=== PATIENT | male | born 1945 | race Caucasian/White ===

== ENCOUNTER 2016-09-20 17:00 | Inpatient (IN) | payer MEDICARE ==
[~2016-09-20] VITALS: Ht 185.4 cm; Wt 59.9 kg
--- NOTE | ~2016-09-20 | PN ---
Unit #: [id number] #: [id number] Patient: TOMMY JEONG [id number] [facility] [address] [place] [address] [id number] MR#: [id number] NAME: TOMMY JEONG ROOM: P211 Age: 71 Sex: M Admission Date: 09/21/2016 : 1945 Attending Physician: Vasquez Briggs M.D. Admitting Physician: Vasquez Briggs M.D. Primary Care Physician: Rita Morales PROGRESS NOTES DATE OF SERVICE: 09/25/2016 DISCUSSION Tommy Jeogn is a 71-year-old male, seen on 09/25/2016. The patient interviewed, chart reviewed, and obtained information from nursing staff. The patient was able to answer question in monotone voice, withdrawn, isolative, flat affect, sad and dysphoric mood. The patient was staying in bed. Hygiene and grooming, poor. The patient needing prompts to take care of his ADL as well as to eat. The patient ate 50% of the breakfast and had Ensure. The patient's CMP yesterday showed sodium 146, glucose 190, BUN 37, creatinine 1.8, calcium 10.4. Complete review of systems unremarkable. MENTAL STATUS EXAMINATION General appearance, the patient dressed casually in hospital attire. Attention span and concentration, poor. Orientation in self and place. Mood and affect, sad, depressed, flat. Speech, monotone. Thought process, concrete. The patient denied any thoughts of harming self or others. Recent and remote memory, poor. Insight and judgment, poor. DIAGNOSES Bipolar mood disorder, recurrent, depressed, F31.9. ASSESSMENT AND PLAN Advised to continue to monitor the patient's intake and output. Follow up with medical doctor, daily weight gain, encouraged the patient to eat, CMP. Dictated by... Jonathan Potter/enrike TD: 09/27/2016 22:42 JOB #: [id number] Unit #: [id number] #: [id number] Patient: TOMMY JEONG PROGRESS NOTES Page 1 of 1 X Vasquez Briggs MD PROGRESS NOTE
--- NOTE | ~2016-09-20 | PA ---
Unit #: [id number] #: [id number] Patient: OVIDIO HANSEN [id number] [facility] [address] [place] [address] [id number] I MR#: [id number] NAME: OVIDIO HASNEN ROOM: P211 Age: 71 Sex: M Admission Date: 09/21/2016 : 1945 Date of Assessment: Attending Physician: Vasquez Briggs M.D. Admitting Physician: Vasquez Briggs M.D. Primary Care Physician: Sharonda Cuevas PSYCHIATRIC ASSESSMENT INFORMANTS Patient's reliability, fair; chart reliability, good. CHIEF COMPLAINT Depression. HISTORY OF PRESENT ILLNESS Mr. Sanders is a 71-year-old male presented with the above-mentioned complaint. The patient is well known to us from his previous admission in 03/2016, carries a diagnosis of bipolar mood disorder. The patient was brought to [facility] by sister due to increase in depression, inability to attend ADL, recently discharged from [facility] for depression with suicidal ideation, disorientation. The patient was catatonic upon admission to the emergency room. Currently flat affect, low energy. Stated that he is feeling very down, sad and depressed. The patient reported he had decreased energy, decrease in desire to take care of himself, reported feeling very lethargic, having trouble sleeping, lost 40 pounds since March. The patient has not been eating in the last 4 days. He lives alone. The patient has support from his sister. Sleeping 2 hours. Poor appetite. Needing inpatient admission at this time for psychiatric stabilization. PAST PSYCHIATRIC HISTORY Remarkable for [facility] Previous treatment in [place], [place] for depression. For the last several years for bipolar disorder, history of outpatient treatment through [facility]. FAMILY HISTORY AND SOCIAL HISTORY The patient lives alone, has a good support system from his sister. No history of any psychiatric illness in the family. MEDICAL HISTORY Remarkable for history of hypertension and kidney problems. Musculoskeletal; muscle strength and tone; no atrophy or abnormal movement. Gait normal. MEDICATION HISTORY The patient is on Lamictal 50 mg at bedtime, bupropion 150 mg daily, Remeron 45 mg at bedtime, Saphris 10 mg b.i.d., sublingual Norvasc 10 mg daily. The patient was also on chlorthalidone, which was discontinued. ALLERGIES Unit #: [id number] #: [id number] Patient: OVIDIO HANSEN No known drug allergies. SUBSTANCE ABUSE HISTORY None. REVIEW OF SYSTEMS HEENT: Eyes, clear. Ears, nose, mouth, and throat; clear. CARDIOVASCULAR: Unremarkable. RESPIRATORY: Unremarkable. GI: Unremarkable. : Unremarkable. SKIN: Unremarkable. LYMPH NODE: Unremarkable. NEUROLOGIC: Unremarkable. ENDOCRINE: Unremarkable. HEMATOLOGIC: Unremarkable. ALLERGIC/IMMUNOLOGIC: Unremarkable. MUSCULOSKELETAL: Muscle strength and tone, no atrophy or abnormal movement. Gait normal. MENTAL STATUS EXAMINATION CONSTITUTIONAL: Measurement of vital signs; temperature 98.8, pulse 65, blood pressure 109/65. The patient's current height is 6 feet 1 inch and weight 132 pounds. GENERAL APPEARANCE: The patient dressed in hospital attire. No facial deformity noted. MUSCULOSKELETAL: Please see above. PSYCHIATRIC EXAMINATION Description of speech; slow in rate and volume. Description of thought process, circumstantial. Description of association, intact. Description of abnormal psychotic thinking; the patient denied any hallucination or delusions, but somewhat guarded and paranoid, suicidal ideation, depression, hopelessness, worthlessness. Please refer to HPI for detail. Description of the patient's judgment, concerning. Everyday activity, poor. Social situation, poor and concerning. Psychiatric condition, fair to poor. Complete mental status examination; oriented in time, place, and person. Recent and remote memory, fair. Attention span and concentration, fair. Language, able to name object and repeat phrases. Fund of knowledge, aware of current event and passive. Vocabulary intact. Mood and affect, sad and dysphoric. Insight and judgment, fair to poor. ASSETS AND LIABILITIES Assets; the patient is articulate and able to take care of his ADL. Liability; history of bipolar disorder, depression. ADMITTING DIAGNOSES Psychiatric: Bipolar mood disorder, recurrent, severe, depressed, F31.9. Secondary diagnosis: Deferred. Medical diagnosis: Acute kidney injury on chronic kidney disease, stage III with both baseline and discharge creatinine 1.6; hypokalemia; normocytic anemia; 50-pound weight loss over the last 6 months; bipolar disorder; hypertension; underweight; moderate protein malnutrition. Unit #: [id number] #: [id number] Patient: OVIDIO HANSEN Stressors: Psychosocial stressors. PSYCHIATRIC PLAN, TREATMENT GOAL AND DISCHARGE PLAN 1. Advised to admit the patient on the inpatient unit. Provide safe, supportive, and structured environment. 2. Ordered labs; CBC, CMP, UA, and UDS. 3. Medical consult to monitor the patient's medical condition. Dietary consult as the patient has malnutrition. Also ordered Ensure. Advised to resume home medication with a plan to replace Saphris with Haldol 5 mg at bedtime. The patient to attend all the programing, group therapy, individual therapy. 4. Treatment goal is to attain euthymic mood, gain insight into his problem, and learn coping skills. 5. Discharge plan is to stabilize the patient and consider followup in outpatient program. ESTIMATED LENGTH OF STAY 2 weeks. Dictated by... Vasquez Briggs M.D. SADIE/enrike TD: 09/23/2016 05:55 JOB #: [id number] PSYCHIATRIC ASSESSMENT Page 1 of 1 X Vasquez Briggs MD X PSYCHIATRIC ASSESSMENT
--- NOTE | ~2016-09-20 | CO ---
Unit #: [id number] #: [id number] Patient: TOMMY HANSEN [id number] [facility] [address] [place] [address] [id number] I MR#: [id number] NAME: TOMMY HANSEN ROOM: P211 Age: 71 Sex: M Admission Date: 09/21/2016 : 1945 Attending Physician: Vasquez Briggs M.D. Primary Care Physician: Sharonda Cuevas Consultation Date: 09/25/2016 CONSULTATION REPORT HISTORY OF PRESENT ILLNESS Tommy has had elevated creatinine 1.6 and 1.8. He reports that he has been trying to increase p.o. hydration. However, this morning, we were unable to recheck his labs. He also has been refusing his bedtime medications. Staff reports he is currently incontinent and is using a brief and that he has been refusing to have those changed as well. When he does have them changed, eventually they are very heavy, but were unable to weigh them. He reports today that he is feeling better and that he is trying to drink more fluids. He has no other complaints. PHYSICAL EXAMINATION CARDIAC: Regular rate and rhythm. No murmur, gallop, or rub. RESPIRATORY: Clear to auscultation bilaterally. ASSESSMENT AND PLAN Elevated creatinine. His BMP and CBC were redrawn this evening. Those results are pending. Once results are available to determine whether he remain here and receive p.o. hydration or if he needs to be transferred for IV hydration and evaluation. Please call with results. Dictated by... Rita Wan/enrike TD: 09/25/2016 23:39 JOB #: [id number] CONSULTATION REPORT Page 1 of 1 X KEVIN WASSERMAN APRN X CONSULTATION REPORT
--- NOTE | ~2016-09-20 | CO ---
Unit #: [id number] #: [id number] Patient: OVIDIO HANSEN [id number] [facility] [address] [place] [address] [id number] I MR#: [id number] NAME: OVIDIO HANSEN ROOM: P211 Age: 71 Sex: M Admission Date: 09/21/2016 : 1945 Attending Physician: Vasquez Briggs M.D. Primary Care Physician: Sharonda Cuevas Requesting Physician: Vasquez Briggs M.D. Consultation Date: 09/26/2016 CONSULTATION REPORT REASON FOR CONSULTATION For decreased kidney function. SUBJECTIVE "I haven't been eating or drinking for a while time." OBJECTIVE Vital signs within normal limits. Renal function declining over the past 2 days. Decreased GFR at 38. Increased creatinine at 1.8. Increased BUN from 30 to 49. The patient has poor p.o. intake of about 500 mL per day. Decreased urine output. ASSESSMENT Possible pending renal failure. PLAN The patient will be sent to hospital. Dictated by... Rita Taylor TD: 09/26/2016 14:53 JOB #: [id number] CONSULTATION REPORT Page 1 of 1 X Cecilia Delvalle APR CONSULTATION REPORT
--- NOTE | ~2016-09-20 | A ---
[facility] Nutrition Therapy DATE: 09/23/16 Patient: OVIDIO HANSEN Physician: HUY Address: [address] [facility] [address] Room/Bed: [address], Zip: [place] [address] Admit Date: 09/21/16 Date of : [birth year] Height: 6 1 Weight: 131 59.772764 NUTRITIONAL ASSESSMENT: REASON: LOW BMI (17.4), UNINTENTIONAL WEIGHT LOSS, CONSULT "PROTEIN MALNUTRITION" PATIENT ADMITTED FOR DEPRESSION, SI, AND CONFUSION PMH: HTN, BETO ON CKD STAGE 3 Anthropometrics: HT: 73", WT: 132#, BMI: 17.4, %IBW: 72 Labs: 09/22/16- GLU: 152, BUN: 32, CREA: 1.6, GFR: 43.0, K: 3.4, ALB: 3.4, HGBA1C: 6.1 Meds: CELEXA, COGENTIN, HALDOL, REMERON, WELLBUTRIN XL Assessment: PATIENT IS A 71 Y/O MALE ADMITTED FOR DEPRESSION, SI, AND CONFUSION. PATIENT IS CURRENTLY RETIRED, LIVES [place], AND DENIES ANY SUBSTANCE ABUSE. PATIENT HAS A HX OF INPATIENT PSYCH HOSPITALIZATIONS AND HE HAS BEEN NON-COMPLIANT WITH HIS MEDICATIONS PRIOR TO ADMIT. PER NEEDS ASSESSMENT PATIENT STATED A POOR APPETITE WITH A 40# WEIGHT LOSS SINCE MARCH 2016, AND HE HAS NOT BEEN SLEEPING. PATIENT ALSO HAD NOT EATEN IN 4 DAYS PRIOR TO HOSPITALIZATION AT [facility]. NOTE PER RD AT [facility] ON 09/21/16- PATIENT HAS HAD A VERY POOR APPETITE IN LAST 6 MONTHS AND WOULD LIKE ENSURE. NURSING REPORTS GOOD PO INTAKES. PATIENT WAS ADMITTED TO THIS FACILITY IN 2015. WEIGHT HX PER [facility] SHOWS A 23# WEIGHT LOSS X 7 MONTHS. CURRENT PSYCH MEDS MAY CAUSE AN INCREASE IN WEIGHT AND APPETITE- WHICH IS DESIRED. PATIENT IS ALSO ON REMERON, WHICH MAY ACT AN APPETITE STIMULANT. THERE ARE NO SKIN OR GI ISSUES NOTED ATT. PATIENT IS ON A REGULAR DIET WITH NO CAFFEINE, AND IS RECEIVING VANILLA ENSURE TID. Dx: INADEUQATE NUTRIENT INTAKE R/T DEPRESSION AEB LOW BMI, <90% IBW, WEIGHT LOSS, DECREASED APPETITE. Intervention: REGULAR DIET, SUPPLEMENTATION, MEDS PER MD, PSYCH Monitoring, Evaluation and Goals: 1. ADEQUATE PO INTAKES >50-75% OF MEALS 2. PREVENT, CORRECT MICRO/MACRO NUTRIENT DEFICIENCIES 3. WEIGHT; PROMOTE A STEADY WEIGHT GAIN TOWARDS A HEALTHY BMI OF 19-25, PREVENT FURTHER WEIGHT LOSS MONITOR: WEIGHTS, LABS, PO/FLUID INTAKES Recommendations: [facility] Nutrition Therapy DATE: 09/23/16 Patient: OVIDIO HANSEN Physician: HUY Address: [address] [facility] [address] Room/Bed: [address], Zip: [place] [address] Admit Date: 09/21/16 Date of : [birth year] Height: 6 1 Weight: [phone] 1. CONTINUE REGULAR DIET WITH NO CAFFEINE AND ENSURE TID TOLERATED. OFFER SNACKS BETWEEN MEALS. IF PATIENT HAS C/O HUNGER PLEASE SEND ORDER FOR LARGER PORTIONS AND RD WILL APPROVE 2. ENCOURAGE ADEQUATE PO AND FLUID INTAKES 3. OBTAIN WEIGHTS ROUTINELY (EVERY 3-4 DAYS) RD TO F/U PER PROTOCOL AND PRN R/T PATIENT MILD/MODERATELY COMPROMISED Respectfully, MARY BETH CASTRO, RD, LD [facility] cc: client file
--- NOTE | ~2016-09-20 | PN ---
Unit #: [id number] #: [id number] Patient: TOMMY JEONG [id number] [facility] [address] [place] [address] [id number] I MR#: [id number] NAME: TOMMY JEONG ROOM: P211 Age: 71 Sex: M Admission Date: 09/21/2016 : 1945 Attending Physician: Vasquez Briggs M.D. Admitting Physician: Vasquez Briggs M.D. Primary Care Physician: Sharonda Cuevas [facility] PROGRESS NOTES DATE 09/26/2016 DISCUSSION Tommy Jeong is a 71-year-old male, seen on 09/26/2016. The patient interviewed, chart reviewed, and obtained information from the nursing staff. The patient still having problems with intake but reported that he ate all his breakfast, and Ensure. The patient still withdrawn, isolative, sad, affect flat, guarded, somewhat paranoid, depressed. The patient's BMP showed glucose 155, BUN 49, creatinine 1.8, yesterday it was 1.6. The patient scheduled to see a medical doctor to consider possible transfer to emergency room for that reason. REVIEW OF SYSTEMS Complete review of systems unremarkable. MENTAL STATUS EXAMINATION General appearance: Patient dressed casually, thin-built. Attention span and concentration, poor. Orientation in time, place, and person. Mood and affect, sad, depressed. Speech, monotone. Thought process, concrete. The patient denied any thoughts of harming self or others but sad, depressed, withdrawn, isolative, guarded. Recent and remote memory, poor. Insight and judgment, poor. DIAGNOSIS Bipolar mood disorder, recurrent, severe depressed, F31.9. ASSESSMENT/PLAN Advised to continue with the inpatient programming with the plan to increase the Celexa to 40 mg daily and consider medical consult for possible transfer to [facility] for further treatment due to increase in creatinine to 1.8. Dictated by... Vasquez Briggs M.D. SADIE/lona Unit #: [id number] #: [id number] Patient: TOMMY JEONG TD: 09/28/2016 09:04 JOB #: [id number] [facility] PROGRESS NOTES Page 1 of 1 X Vasquez Briggs MD PROGRESS NOTE
--- NOTE | ~2016-09-20 | PN ---
Unit #: [id number] #: [id number] Patient: TOMMY HANSEN [id number] [facility] [address] [place] [address] [id number] MR#: [id number] NAME: TOMMY HANSEN ROOM: P211 Age: 71 Sex: M Admission Date: 09/21/2016 : 1945 Attending Physician: Vasquez Briggs M.D. Admitting Physician: Vasquez Briggs M.D. Primary Care Physician: Sharonda DIXON PROGRESS NOTES DATE 09/25/2016 DISCUSSION Mr. Tommy Hansen is a 71-year-old male seen on 09/25/2016. The patient interviewed, chart reviewed. Obtained information from nursing staff. The patient was able to answer questions in monotone voice, withdrawn, isolative, flat affect, sad, dysphoric mood. The patient was staying in bed. Hygiene and grooming poor. The patient needing prompts to take care of his ADL as well as to eat. The patient ate 50% of the breakfast and had Ensure. The patient's CMP yesterday showed 146, glucose 190, BUN 37, Creatinine 1.8. The patient's calcium 10.4. Complete review of systems unremarkable. MENTAL STATUS EXAMINATION General appearance, the patient dressed casually in hospital attire. Attention span and concentration poor. Orientation to self and place. Mood and affect sad, depressed, flat. Speech monotone. Thought process concrete. The patient denied any thoughts of harming self or others. Recent and remote memory poor. Insight and judgement poor. DIAGNOSES Bipolar mood disorder recurrent depressed F31.9. ASSESSMENT/PLAN Advise to continue to monitor the patient's intake and output, followup with a medical doctor, daily weight gain, encourage the patient to eat, comprehensive metabolic panel. Dictated by... Vasquez Briggs M.D. SADIE/daisy TD: 09/27/2016 22:19 JOB #: [id number] Unit #: [id number] #: [id number] Patient: TOMMY HANSEN PROGRESS NOTES Page 1 of 1 X Vasquez Briggs MD PROGRESS NOTE
--- NOTE | ~2016-09-20 | PN ---
Unit #: [id number] #: [id number] Patient: TOMMY HANSEN [id number] [facility] [address] [place] [address] [id number] I MR#: [id number] NAME: TOMMY HANSEN ROOM: P211 Age: 71 Sex: M Admission Date: 09/21/2016 : 1945 Attending Physician: Vasqeuz Briggs M.D. Admitting Physician: Vasquez Briggs M.D. Primary Care Physician: Sharonda DIXON PROGRESS NOTES DATE OF SERVICE 09/24/2016 DISCUSSION Mr. Tommy Hansen is a 71-year-old male seen on 09/24/2016. The patient interviewed, chart reviewed. Obtained information from nursing staff. The patient continues to need a lot of encouragement to eat and get out of the room. Still seclusive, isolative, guarded, flat affect, sad, depressed. The patient still needing a lot of prompts. Hygiene and grooming poor. Isolative, guarded. Flat affect. Complete Review of Systems: Unremarkable. MENTAL STATUS EXAMINATION General Appearance: The patient dressed casually in hospital attire. Attention span, concentration: Poor. Orientation in time, place, and person. Mood and affect: Sad, depressed. Speech: Monotone. Thought process: [place]. The patient having passive SI. Denied any homicidal ideation. Guarded, paranoid. Recent and remote memory: Poor. Insight and judgment: Poor. DIAGNOSIS Bipolar mood disorder, recurrent, severe, depressed, F31.9. ASSESSMENT/PLAN Advised to continue to monitor the patient's I and Os, check his weight daily, encourage the patient to eat. Also, ordered Periactin 4 mg daily to help improve appetite. If needed, consider further adjustment of medication. Continue with the inpatient programming. Dictated by... Vasquez Briggs M.D. SADIE/kd TD: 09/25/2016 13:00 JOB #: [id number] Unit #: [id number] #: [id number] Patient: TOMMY HANSEN PROGRESS NOTES Page 1 of 1 X Vasquez Briggs MD PROGRESS NOTE
--- NOTE | ~2016-09-20 | PN ---
Unit #: [id number] #: [id number] Patient: TMOMY JEONG [id number] [facility] [address] [place] [address] [id number] I MR#: [id number] NAME: TOMMY JEONG ROOM: P211 Age: 71 Sex: M Admission Date: 09/21/2016 : 1945 Attending Physician: Vasquez Briggs M.D. Admitting Physician: Vasquez Briggs M.D. Primary Care Physician: Sharonda DIXON PROGRESS NOTES DATE 09/23/2016 DISCUSSION Tommy Jeong is a 71-year-old male, seen on 09/23/2016. The patient interviewed, chart reviewed, and obtained information from the nursing staff. The patient refusing to eat breakfast, isolative, guarded, flat affect. The patient is eating 25% to 30% of his meal. The patient was also ordered Ensure and the patient was compliant with that but continues to be isolative, flat affect, withdrawn, sad, depressed mood, having passive SI. REVIEW OF SYSTEMS Complete review of systems unremarkable. MENTAL STATUS EXAMINATION General appearance: Patient thin-built, dressed casually. Attention span and concentration, poor. Oriented in place and person. Mood and affect, sad and depressed. Speech, monotone. Thought process, concrete. The patient having passive SI, withdrawn, isolative, seclusive. Recent and remote memory, poor. Insight and judgment, poor. DIAGNOSIS Bipolar mood disorder, recurrent, severe depressed. ASSESSMENT/PLAN Advised to continue with the current medication and therapeutic protocol, continue to encourage the patient to eat, also advised I and O monitoring and encourage the patient to eat, if needed consider further adjustment of medication. Continue with the inpatient programming at this time. Dictated by... Jonathan Potter/lona TD: 09/24/2016 11:41 JOB #: [id number] Unit #: [id number] #: [id number] Patient: TOMMY JEONG PROGRESS NOTES Page 1 of 1 X Vasquez Briggs MD X PROGRESS NOTE
--- NOTE | ~2016-09-20 | HP ---
Unit #: [id number] #: [id number] Patient: TOMMY HANSEN [id number] [facility] [address] [place] [address] [id number] I MR#: [id number] NAME: TOMMY HANSEN ROOM: P211 Age: 71 Sex: M Admission Date: 09/21/2016 : 1945 Attending Physician: Vasquez Briggs M.D. Admitting Physician: Vasquez Briggs M.D. Primary Care Physician: Sharonda Cuevas HISTORY AND PHYSICAL HISTORY OF PRESENT ILLNESS Tommy is a 71-year-old male admitted on 09/21/[address] [place] [address] for depression, suicidal ideation, and confusion. PAST MEDICAL HISTORY Hypertension. 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 SOCIAL HISTORY History of tobacco use. No alcohol or illegal drug use. He is currently and living alone. FAMILY HISTORY Noncontributory. REVIEW OF SYSTEMS CONSTITUTIONAL: No fever or chills. HEENT: Denies any sore throat, ear pain or runny nose. CARDIOVASCULAR: Denies chest pain, irregular heart rhythm or palpitations. CHEST: Denies shortness of breath or cough. No hemoptysis. GASTROINTESTINAL: Denies nausea, vomiting, diarrhea or chronic constipation. ENDOCRINE: Denies history of increased thirst or urination. No recent significant weight loss or gain. GENITOURINARY: Denies dysuria, frequency, or hematuria. SKIN: Denies any rashes. HEMATOLOGIC: Denies history of increased bleeding or bruising. MUSCULOSKELETAL: Denies any hot, swollen joints. No generalized muscle pain. NEUROLOGIC: Denies problems with vision or speech. No frequent, severe headaches. No numbness, tingling or weakness in any extremities. Denies loss of bladder or bowel control. CURRENT MEDICATIONS 1. Wellbutrin. 2. Saphris. 3. Amlodipine. 4. Mirtazapine. 5. Lamotrigine. ALLERGIES Unit #: [id number] #: [id number] Patient: TOMMY HANSEN To sulfa drugs. PHYSICAL EXAMINATION GENERAL: Alert, oriented, no acute distress. VITAL SIGNS: Blood pressure 130/58, heart rate 64, respirations 14, and temperature 97.5. HEIGHT: 6 feet 1. WEIGHT: 132 pounds. SKIN: Warm, dry. No rashes or lesions, track mo, cuts, etc. HEENT: Normocephalic. TMs not viewed. Oronasal passages clear. Conjunctivae clear. PERRLA. EOM is intact. NECK: No lymphadenopathy or thyromegaly. HEART: Regular rate and rhythm. No murmur, gallop, or rub. LUNGS: Clear to auscultation bilaterally. ABDOMEN: Soft, nontender without palpable masses or hepatosplenomegaly. : Not assessed. EXTREMITIES: No evidence of cyanosis, clubbing, or edema. Moves all extremities independently without obvious deficit. NEUROLOGICAL: Grossly within normal limits. Cranial Nerves: II: Visual apple are intact. III, IV AND : Extraocular movements are intact. Pupils are equal, round and reactive to light. V: Facial sensation is grossly normal. VII: Facial movements and expression are normal. VIII: Auditory acuity grossly intact. IX, X: Uvula is midline. Phonation is normal. XI: Patient shrugs shoulders and turns head normally. XII: Tongue protrudes in the midline. Sensory and Motor Function: Sensory and motor sensation is grossly normal. Motor: moves all extremities well. Coordination: Gait is normal. Deep Tendon Reflexes: Intact. IMPRESSION 1. Psychiatric admission. 2. Hypertension. RECOMMENDATIONS PSYCHIATRIC: Per psychiatrist. MEDICAL: No contraindication to participating in this facility's activities. MEDICAL PROGNOSIS Good. MEDICAL CONDITION Stable. Dictated by... Rita Wan TD: 09/22/2016 11:21 JOB #: [id number] Unit #: [id number] #: [id number] Patient: TOMMY HANSEN HISTORY AND PHYSICAL Page 1 of 1 X KEVIN WASSERMAN APRN HISTORY AND PHYSICAL
--- NOTE | ~2016-09-20 | CO ---
Unit #: [id number] #: [id number] Patient: TOMMY HANSEN [id number] [place] [address] [id number] I MR#: [id number] NAME: TOMMY HANSEN ROOM: P211 Age: 71 Sex: M Admission Date: 09/21/2016 : 1945 Attending Physician: Vasquez Briggs M.D. Primary Care Physician: Sharonda Cuevas A.P.R.N. Consultation Date: 09/24/2016 CONSULTATION REPORT HISTORY OF PRESENT ILLNESS Tommy is admitted for depression. He has weariness and malnourishment. His sister reported that he has dementia as well as depression and he has not been eating. She is finding food at home that she is dropping off for him and he just found in the garbage. For this reason, he has lost quite a bit of weight. BMP showed sodium of 146, potassium of 4.4, creatinine of 1.8, BUN of 37 and glucose was 190. He has not been on daily weight and has been refusing some of his medications. He was recently started on Ensure and Periactin 4 mg daily, which he has not received yet. He is unable to answer questions appropriately. PHYSICAL EXAMINATION CARDIAC: Regular rate and rhythm. No murmur, gallop, or rub. RESPIRATORY: Clear to auscultation bilaterally. GENERAL: Alert and oriented, no acute distress. He does look extremely malnourished. ASSESSMENT AND PLAN Please begin daily weight. We will also repeat BMP, CBC and UA in the a.m. If his creatinine increases, he will need to be transferred to [facility]. We will discuss all this with him as well with nursing staff. Dictated by... Kevin Hickey A.P.R.N. for Jonathan Palafox/enrike TD: 09/27/2016 22:52 JOB #: [id number] CONSULTATION REPORT Page 1 of 1 X KEVIN WASSERMAN APRN CONSULTATION REPORT
[~2016-09-20 17:00] MED LIST: ANTIVERT PO; LITHIUM PO
[2016-09-20] MEDS ORDERED: MIRTAZAPINE45 M1 PO (19:50)
[2016-09-20] MEDS ORDERED: SAPHRIS10 MG SL (19:50)
[2016-09-20] MEDS ORDERED: BUPROPION XL150 MG PO (19:51)
[2016-09-20] MEDS ORDERED: AMLODIPINE BESYL5 MG PO (19:58)
[2016-09-20] MEDS ORDERED: LAMICTAL25 MG PO (19:59)
[2016-09-20] MEDS ORDERED: CHLORTHALIDONE25 M1 PO (20:05)
[2016-09-22 09:35] LABS: BASOPHIL% 0.3 % (0-2.5); EOSINOPHIL# 0.1 X10e3 (0-0.7); EOSINOPHIL% 1.4 % (0.0-7.0); HEMATOCRIT 34.8 % (38.0-50.0); HEMOGLOBIN 11.5 gm/dL (13.0-16.0); LYMPHOCYTE# 0.8 X10e3 (1.0-3.5); LYMPHOCYTE% 8.1 % (17.0-45.0); MEAN CELL VOLUME 82.7 FL (83-96); MEAN CORPUSCULAR HEMOGLOBIN 27.3 PG (28-34); MONOCYTE# 0.4 X10e3 (0-1.0); MONOCYTE% 4.7 % (3.0-12.0); NEUTROPHIL# 8.2 X10e3 (1.5-7.1); NEUTROPHIL% 85.5 % (40-75); PLATELET COUNT 249 X10e3 (140-420); RED BLOOD COUNT 4.22 X10e (3.90-5.60); RED CELL DISTRIBUTION WIDTH 15.1 % (11.0-15.5); WHITE BLOOD COUNT 9.6 X10e3 (4.0-10.5)
[2016-09-22 09:44] LABS: DIFF IND NO
[2016-09-22 10:28] LABS: ALBUMIN SERUM 3.4 g/dL (3.5-5.0); BILIRUBIN,TOTAL 0.5 mg/dL (0.2-2.0); CALCIUM SERUM 9.8 mg/dL (8.4-10.2); CREATININE SERUM 1.6 mg/dL (0.6-1.4); POTASSIUM 3.4 mmol/L (3.5-5.1); PROTEIN TOTAL SERUM 6.1 g/dL (6.0-8.3)
[2016-09-24 09:59] LABS: AMPHETAMINE NEG (NEG); BARBITURATES NEG (NEG); BENZODIAZEPINES NEG (NEG); COCAINE NEG (NEG); MARIJUANA NEG (NEG); OPIATES NEG (NEG); TRICYCLIC ANTIDEPRESSANTS NEG (NEG); U METHADONE NEG (NEG)
[2016-09-24 12:39] LABS: ALBUMIN SERUM 3.5 g/dL (3.5-5.0); BILIRUBIN,TOTAL 0.6 mg/dL (0.2-2.0); BUN/CREATININE RATIO 20.55; CALCIUM SERUM 10.4 mg/dL (8.4-10.2); CREATININE SERUM 1.8 mg/dL (0.6-1.4); GLOM FILT RATE Estimated 37.3 mL/min (>60); POTASSIUM 4.4 mmol/L (3.5-5.1); PROTEIN TOTAL SERUM 6.5 g/dL (6.0-8.3)
[2016-09-25 21:09] LABS: BASOPHIL% 0.3 % (0-2.5); EOSINOPHIL# 0.1 X10e3 (0-0.7); EOSINOPHIL% 0.9 % (0.0-7.0); HEMATOCRIT 33.1 % (38.0-50.0); HEMOGLOBIN 10.8 gm/dL (13.0-16.0); LYMPHOCYTE# 1.5 X10e3 (1.0-3.5); LYMPHOCYTE% 12.2 % (17.0-45.0); MEAN CELL VOLUME 83.3 FL (83-96); MEAN CORPUSCULAR HEMOGLOBIN 27.2 PG (28-34); MEAN CORPUSCULAR HGB CONC 32.7 g/dL (30-36); MEAN PLATELET VOLUME 9.3 FL (6.5-11.5); MONOCYTE# 0.6 X10e3 (0-1.0); MONOCYTE% 5.1 % (3.0-12.0); NEUTROPHIL# 9.8 X10e3 (1.5-7.1); NEUTROPHIL% 81.5 % (40-75); PLATELET COUNT 256 X10e3 (140-420); RED BLOOD COUNT 3.97 X10e (3.90-5.60); RED CELL DISTRIBUTION WIDTH 15.4 % (11.0-15.5)
[2016-09-25 21:11] LABS: DIFF IND NO
[2016-09-25 21:34] LABS: BUN/CREATININE RATIO 27.22; CALCIUM SERUM 9.9 mg/dL (8.4-10.2); CREATININE SERUM 1.8 mg/dL (0.6-1.4); GLOM FILT RATE Estimated 37.3 mL/min (>60); POTASSIUM 3.8 mmol/L (3.5-5.1)
[2016-09-26] MEDS ORDERED: HALOPERIDOL1 MG PO (17:33)
[2016-09-26] MEDS ORDERED: COGENTIN1 M1 PO (17:34)
[2016-09-26] MEDS ORDERED: CITALOPRAM HBR40 MG PO ×2 (17:35→19:23)
[2016-09-26] MEDS ORDERED: PERIACTIN4 MG PO (17:36)
[2016-09-26] MEDS ORDERED: AMLODIPINE BESYL5 MG PO (19:18)
[2016-09-26] MEDS ORDERED: WELLBUTRIN XL150 M1 PO (19:18)
[2016-09-26] MEDS ORDERED: LAMICTAL25 MG PO (19:19)
[2016-09-26] MEDS ORDERED: HALDOL PO (19:20)
[2016-09-26] MEDS ORDERED: COGENTIN0.5 M1 PO (19:21)
[2016-09-26] MEDS ORDERED: CELEXA20 M1 PO (19:21)
[2016-09-26] MEDS ORDERED: ACETAMINOPHEN650 M4 PO (19:24)
[2016-09-26] MEDS ORDERED: MILK OF MAGNESIA PO (19:24)
[2016-09-26] MEDS ORDERED: ADVANCED ANTAC355 ML PO (19:26)
== END 2016-09-26 16:47 | DRG 885 ==
LOC: P2S 09-21 19:14
PROVIDERS: Family Medicine; Psychiatry & Neurology Psychiatry
DX: F31.4 Bipolar disorder, current episode depressed, severe, without psychotic features (principal); N17.9 Acute kidney failure, unspecified; E44.0 Moderate protein-calorie malnutrition; R45.851 Suicidal ideations; I12.9 Hypertensive chronic kidney disease with stage 1 through stage 4 chronic kidney disease, or unspecified chronic kidney disease; N18.3 Chronic kidney disease, stage 3 (moderate); E87.6 Hypokalemia; D64.9 Anemia, unspecified
CPT/HCPCS: 36415; 71020; 80048; 80053; 80076; 80178; 80307; 82140; 82553; 82607; 83036; 84484; 85025; 85610; 85730; 90732; 93005; 94760; 96361; 96372; 96374; 99285; G0009; G0378; G0480; J1650; J2060

== ENCOUNTER 2016-09-26 12:49 | Inpatient (IN) | payer MEDICARE ==
[~2016-09-26] VITALS: Ht 185.4 cm; Wt 60.0 kg
--- NOTE | ~2016-09-26 | CO ---
Unit #: [id number] #: [id number] Patient: TOMMY JEONG [id number] [facility] [address] [facility]. [place], [place] [address] [id number] MR#: [id number] NAME: TOMMY JEONG ROOM: 339 Age: 71 Sex: M Admission Date: 09/27/2016 : 1945 Attending Physician: Blayne Montez M.D. Primary Care Physician: Sharonda Cuevas Consultation Date: 09/28/2016 CONSULTATION REPORT REASON FOR CONSULTATION Followup. DISCUSSION Mr. Tommy Jeong is a 71-year-old white male, dressed in hospital attire, lying comfortably in bed. The patient was seen in room 339, bed 1 at [facility]. The patient denied any suicidal or homicidal ideation, but sad, depressed, withdrawn, isolative, flat affect. The patient is still endorsing symptoms of depression, poor appetite, and reports no appetite. The patient reported that he will be getting a feeding tube today. The patient is currently on n.p.o. Denied any hallucination. Compliant with medication, receiving IV fluids. The patient's vital signs; temperature 98.6, heart rate 59, respiratory rate 18, blood pressure 115/67, and oxygen saturation 98%. REVIEW OF SYSTEMS Complete review of systems is unremarkable except as mentioned above. MENTAL STATUS EXAMINATION General appearance; the patient is thin built and dressed in hospital attire. Attention span and concentration, fair. Speech, slow in volume and rate. Oriented in time, place, and person. Mood and affect; sad, depressed, withdrawn, flat affect. Thought process, coherent. Thought content, the patient denied any thoughts of harming self or others, but hopelessness, withdrawn, sad, depressed. Denied any hallucinations. Recent and remote memory, fair. Language, intact. Fund of knowledge, fair. Insight and judgment, fair to slightly impaired. DIAGNOSIS Psychiatric: Bipolar mood disorder, recurrent, severe, depressed, F31.9. ASSESSMENT/PLAN 1. Supportive psychotherapy and psychoeducation provided to the patient. 2. Educated about benefits and side effects of medication and course and prognosis of illness. 3. Advised to continue with current medication combination. If needed, consider further adjustment of medication. The patient will be getting feeding tube today. Plan to consider appropriate placement for the patient. We will work with care management. Dictated by... Vasquez Briggs M.D. Unit #: [id number] #: [id number] Patient: TOMMY JEONG SADIE/enrike TD: 09/29/2016 00:51 JOB #: [id number] CONSULTATION REPORT Page 1 of 1 X Vasquez Briggs MD X CONSULTATION REPORT
--- NOTE | ~2016-09-26 | CO ---
Unit #: [id number] #: [id number] Patient: TOMMY JEONG [id number] [facility] [address] [facility]. [place], [place] [address] [id number] I MR#: [id number] NAME: TOMMY JEONG ROOM: 339 Age: 71 Sex: M Admission Date: 09/27/2016 : 1945 Attending Physician: Blayne Montez M.D. Primary Care Physician: Sharonda Cuevas Consultation Date: 09/27/2016 CONSULTATION REPORT REASON FOR CONSULTATION Depression. HISTORY OF PRESENT ILLNESS Mr. Tommy Jeong is a 71-year-old white male, seen in room 339, bed 1 on 09/27/2016 at [facility]. The patient was transferred from [facility] due to dehydration and possible kidney failure. The patient had abnormal labs and refusing to eat. The patient dressed in hospital attire, lying comfortably in bed, thin-built. The patient reports that still has poor appetite, feeling sad and depressed but denied any suicidal or homicidal ideation, but feeling of hopelessness. The patient compliant with medication. Denied any homicidal ideation or any hallucination, but still guarded and paranoid. The patient is cooperative, able to answer questions appropriately and coherent. PAST PSYCHIATRIC HISTORY Remarkable for history of bipolar mood disorder, history of previous treatment at [facility] in [facility] and [facility], and previous at [facility]. MEDICAL HISTORY History of hypertension. MEDICATION HISTORY The patient is on Lamictal 50 mg at bedtime, bupropion XL 150 mg daily, Remeron 45 mg at bedtime, Norvasc 10 mg daily, and Haldol 5 mg at bedtime. FAMILY HISTORY AND SOCIAL HISTORY The patient has a good support system from his sister, but lives alone. No history of any abuse. No history of any substance abuse. REVIEW OF SYSTEMS Complete review of system is unremarkable except as mentioned above. MENTAL STATUS EXAMINATION The patient's vital signs; temperature 98.0, heart rate 72, respiratory rate 16, blood pressure 126/66, and oxygen saturation 100%. General appearance; the patient dressed in hospital attire, lying comfortably in bed. Attention span and concentration, fair. Speech, slow in volume and rate. Oriented in time, place, and person. Mood and affect, sad, depressed, flat. Thought process was goal directed. Thought content, guarded, somewhat paranoid, but denied any suicidal or homicidal ideation, Unit #: [id number] #: [id number] Patient: TOMMY JEONG but sad, depressed, withdrawn, isolative. Recent and remote memory, fair. Language, intact. Fund of knowledge, fair. Insight and judgment, fair to slightly impaired. DIAGNOSES Psychiatric: Bipolar mood disorder, recurrent, severe, depressed, F31.9. Secondary diagnosis: Deferred. Medical diagnosis: Please refer to H and P. Stressors: Psychosocial stressors. ASSESSMENT/PLAN 1. Supportive psychotherapy and psychoeducation provided to the patient. 2. Educated about benefits and side effects of medication and course and prognosis of illness. 3. Advised to continue with current medication combination of Celexa 40 daily, Cogentin 0.5 mg at bedtime, Haldol 5 mg at bedtime, Remeron 45 mg at bedtime, Lamictal 25 mg b.i.d., Norvasc 5 mg b.i.d., Periactin 4 mg daily. The patient is also receiving IV fluid and Wellbutrin XL 150 mg in the morning. If needed, consider further adjustment of medication. Please feel free to call if any questions, telephone #[phone]. Possibly considering feeding tube for the patient. Dictated by... Jonathan Potter/enrike TD: 09/29/2016 01:58 JOB #: [id number] CONSULTATION REPORT Page 1 of 1 X Vasquez Briggs MD X CONSULTATION REPORT
--- NOTE | ~2016-09-26 | A ---
[facility] Nutrition Therapy DATE: 09/28/16 Patient: OVIDIO HANSEN Physician: PHILLIP Address: [address] [facility] Room/Bed: [address] [place] [address], Zip: [place] [address] Admit Date: 09/27/16 Date of : [birth year] Height: 6 1 Weight: 131 59.6 NUTRITIONAL ASSESSMENT: REASON: 4 points nutrition risk RE: 15# weight loss and eating poorly, also for consult RE: Weight loss, and low BMI 71 yo male admitted for dehydration, refusing to eat PMH: Depression, anxiety, bipolar disorder, CKD stage 3, HTN Anthropometrics: Ht: 6'1" Adm wt: 59.6 kg BMI: 17.3 IBW: 83.6 kg, 71% IBW Labs: Cl- 113 Gluc 114 BUN 31 Alb 3.0 Phos 2.3 GFR 50.6 Meds: D5%, remeron, MOM, NaCl I/O & Bowel function: 4160/784, last BM 09/28 Skin Integrity: bruising BUE Blanchable redness to coccyx Edema: none documented Estimated Nutrition Needs: 2478-6672 kcals (30-35 kcals/kg) 60-77 grams protein (1.0-1.3 grams/kg) Assessment: Chart reviewed, events noted. 71 yo male admitted for dehydration and refusing to eat. RD was previously seen by [facility] RD 09/21/16, then by [facility] [address] on 09/23/16 for low BMI and weight loss. Pt apparently weighed 57 kg when seen by [facility] RD on 09/21. Pt's current admission weight is 59.6 kg, indicating that his weights have stable. These weights may be inaccurate, as 15# weight loss was noted in nursing malnutrition screen and MD also noting total 45# weight loss. Pt has continually been refusing to eat per information in chart and in the H&P, which is possibly related to psych history. GI has been consulted and PEG is being considered. RD spoke with the pt at bedside. Pt appeared very thin, frail and malnourished. Pt is unable to provided specific amount of weight loss; however, he does report that he does not have an appetite. RD stressed the importance of adequate nutritional intake and weight loss prevention. Pt nodded his head in understanding, however he did not demonstrate motivation to increase intake. RD offered to order Ensure supplements once the pt's diet advances (as previously ordered at [facility] and [facility]), and the pt agreed, but once again he did not seem motivated to consume the supplements. Please refer to recommendations below. [facility] Nutrition Therapy DATE: 09/28/16 Patient: OVIDIO HANSEN Physician: PHILLIP Address: [address] [place] [address] [address] Room/Bed: [address] [place] [address], Zip: [place] [address] Admit Date: 09/27/16 Date of : [birth year] Height: 6 1 Weight: 131 59.6 PLEASE NOTE: This pt is at risk for refeeding syndrome with prolonged poor intake, low body weight and low Phos Dx: Inadequate oral intake RT psychological history, decreased appetite AEB dehydration, refusal to eat. Intervention: 1. Enteral nutrition if access obtained 2. Advance to a regular diet as tolerated. 3. Ensure TID once advanced to PO diet Monitoring, Evaluation and Goals: 1. Enteral nutrition; initiate if enteral access obtained 2. Oral intake; advance to PO diet once medically feasible 3. Improve labs; BUN, glucose, Phos 4. Weight; prevent further weight loss, promote gradual weight gain 5. Skin; prevent breakdown Recommendations: 1. Once medically feasible, advance the pt to a regular diet as tolerated + Ensure BID. 2. Encourage adequate nutritional intake. 3. If enteral access is obtained, consider starting enteral nutrition with Jevity 1.5 at low rate and increasing gradually to goal rate, as this pt is at risk for refeeding syndrome with prolonged poor intake, likely malnutrition and low Phos. Recommend the follow if EN is ordered: -Start Jevity 1.5 @ 15 mL/hr. Increase by 10 mL q 12 hrs as tolerated to goal of 55 mL/hr to provide: 1980 kcals/ 84 grams protein/ 1003 mL free H20 4. Monitor glucose and electrolyte levels closely. Also monitor for symptoms of enteral intolerance if EN initiated. RD will follow hospital course to determine appropriate EN regimen. Pt is at moderate-severe nutritional risk. Respectfully, [facility] Nutrition Therapy DATE: 09/28/16 Patient: OVIDIO HANSEN Physician: PHILLIP Address: [address] Room/Bed: [address] [place] [address], State, Zip: [place] [address] Admit Date: 09/27/16 Date of : [birth year] Height: 6 1 Weight: [address], LD [facility] cc: client file
--- NOTE | ~2016-09-26 | MAL ---
[facility] Nutrition Therapy DATE: 09/28/16 Patient: OVIDIO HANSEN Physician: PHILLIP Address: [address] [facility] [address] Room/Bed: [address] [place] [address], Zip: [place] [address] Admit Date: 09/27/16 Date of : [birth year] Height: 6 1 Weight: 131 59.6 PHYSICAL MALNUTRITION ASSESSMENT Energy Intake, Chronic Illness Severely reduced: </=50% needs for >/=1 month Energy Intake Comment: MD documented pt is refusing to eat for prolonged period of time. Pt reports no appetite or desire to eat. Weight Loss, Chronic Illness Severe: >10% past 6 months Weight Loss, Comment: Per previous admission notes and pt report, it appears that he has lost ~30# in the past 7 months (since February 2016). This indicates 19% weight loss in 7 months. Physical Findings Body Fat and Muscle Mass Severe: (obvious) significant muscle wasting and/or loss of subcutaneous fat Physical Findings Comment: Protruding clavicle bone, little to no muscle definition, thin and frail appearance, squaring of the shoulder to arm joint. Malnutrition Survey Results: Malnutrition identified Malnutrition Etiology Summary: Chronic illness severe Malnutrition Survey Comment: Please refer to full RD nutrition assessment for further details. Respectfully, FLORENTINO SPAULDING, [place], LD [facility] cc: client file
--- NOTE | ~2016-09-26 | CO ---
Unit #: [id number] #: [id number] Patient: TOMMY JEONG JR [id number] [facility] [address] [facility]. [place], [place] [address] [id number] MR#: [id number] NAME: TOMMY JEONG JR ROOM: 339 Age: 71 Sex: M Admission Date: 09/27/2016 : 1945 Attending Physician: Blayne Montez M.D. Primary Care Physician: Sharonda Cuevas Consultation Date: 09/29/2016 CONSULTATION REPORT REASON FOR CONSULTATION Followup. HISTORY OF PRESENT ILLNESS Mr. Tommy Jeong is a 71-year-old male, seen in room 339, bed 1, on 09/29/2016 at [facility]. The patient was tolerating medication fairly well, started on Latuda yesterday, withdrawn, isolative, flat affect. The patient compliant with the medication, denied any suicidal or homicidal ideation, but still sad, depressed, isolative, poor appetite, flat affect. Vital signs, 99.1, 80, 18, and 126/67, oxygen saturation 96%. REVIEW OF SYSTEMS Complete review of systems unremarkable. MENTAL STATUS EXAMINATION VITAL SIGNS: Please see above. General appearance: Patient thin-built, dressed casually in hospital attire. Attention span and concentration, fair. Speech, monotone, slow in rate and low in volume, Oriented in time, place, and person. Mood and affect, sad and dysphoric, flat affect. Thought process, coherent. Thought content, the patient denied any thoughts of harming self or others but passive SI, guarded, withdrawn, flat affect. Recent and remote memory, poor. Insight and judgment, fair to slightly impaired. DIAGNOSES Bipolar mood disorder, recurrent, severe, depressed, F31.9. ASSESSMENT/PLAN 1. Supportive psychotherapy, psychoeducation provided to the patient. 2. Educated about benefits and side effects of medication, and course and prognosis of illness. 3. Advised to continue with the current medication, if needed consider further adjustment of medication. 4. Please feel free to call if any questions, telephone number, . Dictated by... Vasquez Briggs M.D. Unit #: [id number] #: [id number] Patient: TOMMY JEONG JR/lona TD: 09/30/2016 08:35 JOB #: [id number] CONSULTATION REPORT Page 1 of 1 X Vasquez Briggs MD CONSULTATION REPORT
--- NOTE | ~2016-09-26 | HP ---
Unit #: [id number] #: [id number] Patient: OVIDIO HANSEN [id number] [place], [place] [address] [id number] I MR#: [id number] NAME: OVIDIO HANSEN ROOM: 11023 Age: 71 Sex: M Admission Date: 09/26/2016 : 1945 Attending Physician: Elza Unger M.D. Primary Care Physician: Sharonda Cuevas A.P.R.N. HISTORY AND PHYSICAL CHIEF COMPLAINT Abnormal labs, refusing to eat. HISTORY OF PRESENT ILLNESS The patient is a 71-year-old male with past medical history of chronic kidney disease, bipolar disorder and hypertension who presented to the emergency department for evaluation of the above. History is obtained from the patient, as well as from his sister, Arabella Barth, who is at bedside. Of note, the patient was hospitalized at [facility] September 21 through the for dehydration, anorexia, chronic kidney disease. He was discharged to [facility]. He has continued to refuse to eat, so he was brought to the emergency department again. Creatinine was 1.6 on the . It is 1.9 today. Creatinine has been as high as 2.4. The patient sees Dr. Lance regarding chronic kidney disease. The patient denies any current suicidal or homicidal ideations. He denies any abdominal pain. No vomiting. He has apparently lost about 45 pounds since March. The patient's sister states that he was on lithium for 30 years and was taken off lithium at the end of 2015 due to worsening kidney function. Since that time, he has been in and out of [facility] due to refusing to eat and becoming dehydrated. He is being admitted to [facility] for evaluation and further treatment. Of note the ER physician, Dr. Winkler, spoke with the physician at [facility] who recommended a medical psychiatric facility where the patient could receive IV fluids while receiving psychiatric care. PAST MEDICAL HISTORY 1. Admission to [facility] September 20, 2016. 2. Acute on chronic kidney disease, stage 3, with a baseline creatinine of 1.6. 3. Bipolar disorder with associated depression and psychosis. 4. Hypertension. PAST SURGICAL HISTORY Tumor removal. SOCIAL HISTORY The patient lives alone. He quit smoking. There is no alcohol use. He typically walks without assistance. Unit #: [id number] #: [id number] Patient: OVIDIO HANSEN FAMILY HISTORY Notable for his mother having COPD. ALLERGIES Sulfa. HOME MEDICATIONS (per the discharge summary from September 21, 2016) 1. Lamictal 50 mg at bedtime. 2. Bupropion XL 150 daily. 3. Remeron 45 mg at bedtime. 4. Saphris 10 mg b.i.d. 5. Norvasc 10 mg daily. REVIEW OF SYSTEMS A complete review of systems is negative except as indicated in the HPI. PHYSICAL EXAMINATION VITAL SIGNS: Temperature is 98.1, pulse 73, respirations 15, blood pressure 126/68, oxygen saturation 98% on room air. GENERAL: The patient is a cachectic, chronically ill-appearing male who is awake and alert in no acute distress. HEENT: The head is atraumatic. Mucous membranes are dry. NECK: Supple. Trachea is midline. CARDIOVASCULAR: Regular rate and rhythm. RESPIRATORY: Lungs are clear to auscultation bilaterally with no increased work of breathing. ABDOMEN: Soft, nontender with bowel sounds present in all 4 quadrants. EXTREMITIES: Extremities are nontender with no pedal edema. NEUROLOGIC: The patient is awake and alert. He is oriented x3. He knows it is September of 2016 but does not know the exact date. He is moving all extremities. PSYCHIATRIC: The patient has a flat affect. SKIN: Skin of examined areas is warm and dry. DIAGNOSTIC TESTS LABORATORY: Complete blood count notable for white blood cell count of 10.9, hemoglobin and hematocrit 11.3 and 34.2 respectively. Basic metabolic panel notable for glucose of 172, BUN and creatinine 52 and 1.9 respectively. ASSESSMENT 1. The patient is a 71-year-old male with dehydration. The patient received 1 liter of normal saline in the emergency department. 2. Anorexia. 3. Acute on chronic kidney disease, stage 3, with a baseline creatinine of 1.6. Creatinine is 1.9 today. The patient has been refusing to eat. 4. Weight loss. The patient has lost about 45 pounds in the past 6-7 months. 5. Bipolar disorder, previously on lithium. 6. Hypertension. 7. Former smoker. PLAN 1. Admit for observation to intermediate level. 2. Normal saline at 100 mL an hour. 3. Strict I's and O's. 4. Nutrition consult. Unit #: [id number] #: [id number] Patient: OVIDIO HANSEN 5. NG tube for possible tube feeds. 6. Consult Dr. Arias regarding anorexia and possible percutaneous endoscopic gastrostomy tube placement. 7. press manager and social work consult regarding geriatric psychiatric facility placement. 8. Check magnesium and phosphorous levels. 9. Consult Dr. Briggs about bipolar disorder. 10. Repeat labs in the morning. 11. Additional workup and consultants based on above. 12. Sequential compression devices for deep vein thrombosis prophylaxis. Dictated by Jonathan Sepulveda/karmen TD: 09/26/2016 15:52 JOB #: [id number] HISTORY AND PHYSICAL Page 1 of 1 X Elza Unger MD X HISTORY AND PHYSICAL
[~2016-09-26 12:49] MED LIST changes: +AMLODIPINE BESYL5 MG PO; +BUPROPION XL150 MG PO; +CHLORTHALIDONE25 M1 PO; +LAMICTAL25 MG PO; +MIRTAZAPINE45 M1 PO; +SAPHRIS10 MG SL
[2016-09-26 13:46] LABS: BASOPHIL# 0.1 X10e3 (0-0.3); BASOPHIL% 0.6 % (0-2.5); EOSINOPHIL# 0.1 X10e3 (0-0.7); EOSINOPHIL% 0.9 % (0.0-7.0); HEMATOCRIT 34.2 % (38.0-50.0); HEMOGLOBIN 11.3 gm/dL (13.0-16.0); LYMPHOCYTE# 1.2 X10e3 (1.0-3.5); LYMPHOCYTE% 11.4 % (17.0-45.0); MEAN CELL VOLUME 83.8 FL (83-96); MEAN CORPUSCULAR HEMOGLOBIN 27.8 PG (28-34); MEAN CORPUSCULAR HGB CONC 33.2 g/dL (30-36); MEAN PLATELET VOLUME 9.2 FL (6.5-11.5); MONOCYTE# 0.6 X10e3 (0-1.0); MONOCYTE% 5.5 % (3.0-12.0); NEUTROPHIL# 8.9 X10e3 (1.5-7.1); NEUTROPHIL% 81.6 % (40-75); PLATELET COUNT 233 X10e3 (140-420); RED BLOOD COUNT 4.08 X10e (3.90-5.60); WHITE BLOOD COUNT 10.9 X10e3 (4.0-10.5)
[2016-09-26 13:55] LABS: DIFF IND NO
[2016-09-26 14:00] LABS: BUN/CREATININE RATIO 27.36; CALCIUM SERUM 9.9 mg/dL (8.4-10.2); CREATININE SERUM 1.9 mg/dL (0.6-1.4); GLOM FILT RATE Estimated 34.9 mL/min (>60); POTASSIUM 3.7 mmol/L (3.5-5.1)
[2016-09-26 16:09] LABS: MAGNESIUM 1.8 mg/dL (1.6-3.0); PHOSPHOROUS 2.3 mg/dL (2.5-4.6)
[2016-09-26] MEDS ORDERED: HALOPERIDOL1 MG PO (17:33)
[2016-09-26] MEDS ORDERED: COGENTIN1 M1 PO (17:34)
[2016-09-26] MEDS ORDERED: CITALOPRAM HBR40 MG PO ×2 (17:35→19:23)
[2016-09-26] MEDS ORDERED: PERIACTIN4 MG PO (17:36)
[2016-09-26] MEDS ORDERED: AMLODIPINE BESYL5 MG PO (19:18)
[2016-09-26] MEDS ORDERED: WELLBUTRIN XL150 M1 PO (19:18)
[2016-09-26] MEDS ORDERED: LAMICTAL25 MG PO (19:19)
[2016-09-26] MEDS ORDERED: HALDOL PO (19:20)
[2016-09-26] MEDS ORDERED: COGENTIN0.5 M1 PO (19:21)
[2016-09-26] MEDS ORDERED: CELEXA20 M1 PO (19:21)
[2016-09-26] MEDS ORDERED: MILK OF MAGNESIA PO (19:24)
[2016-09-26] MEDS ORDERED: ACETAMINOPHEN650 M4 PO (19:24)
[2016-09-26] MEDS ORDERED: ADVANCED ANTAC355 ML PO (19:26)
[2016-09-27 06:29] LABS: HEMATOCRIT 32.5 % (38.0-50.0); HEMOGLOBIN 10.6 gm/dL (13.0-16.0); MEAN CELL VOLUME 84.5 FL (83-96); MEAN CORPUSCULAR HEMOGLOBIN 27.6 PG (28-34); MEAN CORPUSCULAR HGB CONC 32.7 g/dL (30-36); MEAN PLATELET VOLUME 8.9 FL (6.5-11.5); RED BLOOD COUNT 3.85 X10e (3.90-5.60); RED CELL DISTRIBUTION WIDTH 15.2 % (11.0-15.5); WHITE BLOOD COUNT 9.2 X10e3 (4.0-10.5)
[2016-09-27 06:56] LABS: BILIRUBIN,TOTAL 0.3 mg/dL (0.2-2.0); CALCIUM SERUM 9.4 mg/dL (8.4-10.2); CREATININE SERUM 1.5 mg/dL (0.6-1.4); GLOM FILT RATE Estimated 46.5 mL/min (>60); POTASSIUM 3.9 mmol/L (3.5-5.1); PROTEIN TOTAL SERUM 5.8 g/dL (6.0-8.3)
[2016-09-28 06:40] LABS: HEMATOCRIT 34.4 % (38.0-50.0); MEAN CELL VOLUME 84.5 FL (83-96); MEAN CORPUSCULAR HGB CONC 31.9 g/dL (30-36); MEAN PLATELET VOLUME 8.9 FL (6.5-11.5); RED BLOOD COUNT 4.07 X10e (3.90-5.60); RED CELL DISTRIBUTION WIDTH 15.3 % (11.0-15.5); WHITE BLOOD COUNT 8.1 X10e3 (4.0-10.5)
[2016-09-28 07:24] LABS: BUN/CREATININE RATIO 22.14; CALCIUM SERUM 9.7 mg/dL (8.4-10.2); CREATININE SERUM 1.4 mg/dL (0.6-1.4); GLOM FILT RATE Estimated 50.6 mL/min (>60); POTASSIUM 3.8 mmol/L (3.5-5.1)
[2016-09-28 15:04] LABS: URINE APPEARANCE CLEAR; URINE BILIRUBIN NEG (NEG); URINE BLOOD NEG (NEG); URINE COLOR YELLOW; URINE GLUCOSE NEG (NEG); URINE KETONE NEG (NEG); URINE LEUKOCYTE ESTERASE 2+ (NEG); URINE NITRATE NEG (NEG); URINE PH 6.5 (5-8); URINE PROTEIN NEG (NEG); URINE SPECIFIC GRAVITY 1.006 (1.003-1.035); URINE UROBILINOGEN 0.2 MG/DL (NEG)
[2016-09-28 15:05] LABS: URINE BACTERIA AUWI 1+ (NEGATIVE); URINE SQUAMOUS EPITHELIAL CELL NONE SEEN /[HPF]; UWBCS1 AUWI 25-50 (0-5)
== END 2016-09-29 20:25 | DRG 683 ==
LOC: CED 12:49 → CEDOF 15:46 → C3A PCU 18:00 → CEDOF 09-27 09:30 → C3A PCU 09-28 09:30
PROVIDERS: Emergency Medicine; Family Medicine; Internal Medicine
DX: N17.9 Acute kidney failure, unspecified (principal); Z68.1 Body mass index [BMI] 19.9 or less, adult; E44.0 Moderate protein-calorie malnutrition; N39.0 Urinary tract infection, site not specified; I12.9 Hypertensive chronic kidney disease with stage 1 through stage 4 chronic kidney disease, or unspecified chronic kidney disease; N18.3 Chronic kidney disease, stage 3 (moderate); E86.0 Dehydration; F31.9 Bipolar disorder, unspecified; Z87.891 Personal history of nicotine dependence; Z88.2 Allergy status to sulfonamides; R62.7 Adult failure to thrive; Z83.6 Family history of other diseases of the respiratory system
CPT/HCPCS: 36415; 80048; 80053; 81003; 83735; 84100; 85025; 85027; 87086; 92610; 97116; 97161; 97166; 97535; 99284; G8978-GP; G8979-GP; G8987-GO; G8988-GO; G8996-GN; G8997-GN; G8998-GN; J0696

== ENCOUNTER 2016-09-29 10:00 | Inpatient (IN) | payer MEDICARE ==
[~2016-09-29] VITALS: Ht 185.4 cm; Wt 58.1 kg
--- NOTE | ~2016-09-29 | A ---
[facility] Nutrition Therapy DATE: 09/30/16 Patient: OVIDIO HANSEN JR Physician: HUY Address: [address] [facility] Room/Bed: [address], Zip: [place] [address] Admit Date: 09/29/16 Date of : [birth year] Height: 6 1 Weight: [phone] NUTRITIONAL ASSESSMENT: REASON: 2 NUTRITIONAL RISK POINTS, LOW BMI (16.9) PATIENT ADMITTED ON 09/20/16 FOR CONFUSION, SI, AND DEPRESSION. PATIENT WENT OUT TO [facility] AND IS BACK FOR THE SAME PMH: UTI, HTN, CKD STAGE 3 Anthropometrics: HT: 73", WT: 128#, BMI: 16.9 Labs: 09/28/16- GLU: 114, BUN: 31, GFR: 50.6 Meds: CELEXA, REMERON, LATUDA, HALDOL Assessment: PATIENT IS A 71 Y/O MALE ADMITTED FOR DEPRESSION, CONFUSION, AND SI. PATIENT WAS INITIALLY ADMITTED ON 09/20/16 FROM [facility]. HE WAS SENT BACK OUT TO [facility] D/T DEHYDRATION AND REFUSAL TO EAT. AFTER STABILIZATION PATIENT WAS THEN ADMITTED BACK TO THIS FACILITY. [facility] RD ASSESSED 09/21/16 AND 09/28/16, [facility] RD ASSESSED 09/23/16- NOTES REVIEWED. PATIENT IS CURRENTLY RETIRED, LIVES ALONE, AND DENIES ANY SUBSTANCE ABUSE. PER NEEDS ASSESSMENT PATIENT HAS LOST 453 S[address]CE MARCH AND PATIENT HAS A POOR APPETITE. [facility] OF 121-132# OVER THE LAST 10 DAYS FROM THE 2 DIFFERENT HOSPITALS; HOWEVER HIS WEIGHTS HAVE SEEMED TO STABILIZE FOR NOW. PATIENT HAS BEEN STEADILY LOSING WEIGHT, WITH A WEIGHT OF 155# ON 02/2016 AND 170# 10 YEARS AGO. PER NURSING, PATIENT DID EAT BREAKFAST THIS MORNING HOWEVER HE IS CURRENTLY VERY CONFUSED AND UNABLE TO ANSWER QUESTIONS APPROPRIATELY. HE HAS ALSO NOW INCONTINENT OF BOWEL AND BLADDER. PATIENT IS CURRENTLY ON A REGULAR DIET AND HE WAS ON A MECHANICAL CHOPPED DIET AT [facility]. CURRENT PSYCH MEDS MAY CAUSE FLUCTUATIONS IN WEIGHT AND APPETITE. PATIENT DID APPEAR TO BE QUITE THIN. HE WAS CONSIDERED FOR PEG TUBE PLACEMENT, BUT ULTIMATELY DID NOT RECEIVE ONE. HE IS UNABLE TO HAVE A PEG TUBE WHILE AT THIS FACILITY. Dx: INADEQUATE NUTRIENT INTAKE R/T DEPRESSION, REFUSAL TO EAT AEB LOW BMI, 2 NUTRITIONAL RISK POINTS, ~40# WEIGHT LOSS X LAST 7 MONTHS. Intervention: REGULAR DIET, MEDS PER MD, SUPPLEMENTATION, MEDIA BUYER EVAL, PSYCH Monitoring, Evaluation and Goals: 1. ADEQUATE PO INTAKES >50-75% OF MEALS 2. PREVENT, CORRECT MICRO/MACRO NUTRIENT DEFICIENCIES 3. WEIGHT; PROMOTE A STEADY WEIGHT GAIN TOWARDS A HEALTHY BMI OF 19-25, PREVENT FURTHER [facility] Nutrition Therapy DATE: 09/30/16 Patient: OVIDIO HANSEN JR Physician: HUY Address: [address] [place] [address] [address] Room/Bed: [id number], Zip: [place] [address] Admit Date: 09/29/16 Date of : [birth year] Height: 6 1 Weight: [phone] WEIGHT LOSS MONITOR: WEIGHTS, LABS, PO/FLUID INTAKES Recommendations: 1. CONTINUE REGULAR DIET TOLERATED. RECOMMEND INITIATING A 1:1 DURING MEALS TO ENCOURAGE INCREAESD PO INTAKES 2. RECOMMEND MEDIA BUYER EVALUATION FOR CHEWING/SWALLOWING DIFFICULTIES. PATIENT WAS ON A MECHANICAL CHOPPED DIET WHILE AT [facility] 3. WILL ORDER VANILLA ENSURE TID FOR ADDED NUTRIENT SUPPORT 4. OBTAIN WEIGHTS ROUTINELY (EVERY 3-4 DAYS) TO ENSURE PATIENT IS RECEIVING ADEQUATE ORAL INTAKE 5. RECOMMEND POSSIBLY ADDING AN APPETITE STIMULANT TO PATIENT'S CURRENT MEDICATION REGIMEN. PATIENT IS CURRENTLY ON 45MG REMERON FOR INSOMINA, HOWEVER IT DOES NOT SEEM TO BE INCREASING PATIENT'S APPETITE 6. IF PATIENT'S APPETITE AND PO INTAKE DO NOT INCREASE AND/OR PATIENT'S WEIGHT CONTINUES TO DECREASE. MAY RECOMMEND ALTERNATIVE NUTRITION SUPPORT SUCH ENTERAL NUTRITION RD TO F/U PER PROTOCOL AND PRN R/T PATIENT MODERATELY/SEVERELY NUTRITIONALLY COMPROMISED Respectfully, MARY BETH CASTRO, [place], LD [employer] [facility] cc: client file
--- NOTE | ~2016-09-29 | PA ---
Unit #: [id number] #: [id number] Patient: TOMMY JEONG JR [id number] [facility] [address] [place] [address] [id number] I MR#: [id number] NAME: TOMMY JEONG JR ROOM: P255 Age: 71 Sex: M Admission Date: 09/29/2016 : 1945 Date of Assessment: Attending Physician: Vasquez Briggs M.D. Admitting Physician: Vasquez Briggs M.D. Primary Care Physician: Sharonda Cuevas PSYCHIATRIC ASSESSMENT INFORMANTS The patient reliability, fair; chart reliability, good. CHIEF COMPLAINT Depression. HISTORY OF PRESENT ILLNESS Mr. Tommy Jeong is a 71-year-old male who was initially admitted at [facility] and transferred to [facility] and returned on 09/29/2016. The patient carries a diagnosis of bipolar mood disorder with a recent depression. The patient has increase in symptoms of depression, declining hygiene, catatonia, decreased appetite, withdrawn, flat, sad and dysphoric mood. The patient was also having minimal consumption of food and water that led to dehydration and increase in creatinine. The patient was stabilized and transferred to [facility] for psychiatric stabilization. The patient is still withdrawn, isolative, hopeless, depressed, significant symptoms of depression, poor appetite, sleep, needing inpatient admission at this time for psychiatric stabilization. PAST PSYCHIATRIC HISTORY Remarkable for history of previous treatment in 02/29/2016, in 09/22/2015 at [facility]. History of previous treatment in [place], [place] for depression. Treated for bipolar disorder for last many years and outpatient treatment through [facility]. FAMILY HISTORY AND SOCIAL HISTORY The patient lives alone as a good support system from his sister. No known history of any abuse or legal problem. MEDICAL HISTORY Remarkable for history of hypertension and kidney problems. Musculoskeletal; muscle strength and tone, no atrophy or abnormal movement. Gait normal. MEDICATION HISTORY The patient is currently on Latuda 20 mg daily, Periactin 4 mg daily, Celexa 40 mg daily, Lamictal 25 mg b.i.d., Norvasc 5 mg daily, and Remeron 45 mg daily. ALLERGIES No known drug allergies. SUBSTANCE ABUSE HISTORY Unit #: [id number] #: [id number] Patient: TOMMY JEONG None. REVIEW OF SYSTEMS HEENT: Eyes, clear. Ears, nose, mouth, and throat; clear. CARDIOVASCULAR: Unremarkable. RESPIRATORY: Unremarkable. GI: Unremarkable. : Unremarkable. SKIN: Unremarkable. LYMPH NODE: Unremarkable. NEUROLOGIC: Unremarkable. ENDOCRINE: Unremarkable. HEMATOLOGIC: Unremarkable. ALLERGIC/IMMUNOLOGIC: Unremarkable. MUSCULOSKELETAL: Muscle strength and tone, no atrophy or abnormal movement. Gait normal. MENTAL STATUS EXAMINATION CONSTITUTIONAL: Measurement of vital signs; temperature is 98.6, pulse 88, respirations 20. The patient weighs 128 pounds. GENERAL APPEARANCE: The patient is thin built, dressed casually in hospital attire. No facial deformity noted. MUSCULOSKELETAL: Please see above. PSYCHIATRIC EXAMINATION Description of speech; slow in volume and rate and nonspontaneous. Description of thought process, circumstantial. Description of thought process, goal directed. Description of association, intact. Description of abnormal psychotic thinking; the patient denied any hallucination or delusions, but guarded, flat affect, sad and dysphoric mood, mood lability, depressed. The patient denied any suicidal or homicidal ideation, but hopelessness and worthlessness. Description of the patient's judgment, concerning everyday activity, poor. Social situation, poor. Concerning psychiatric condition, poor. Complete mental status examination; oriented in time, place, and person. Recent and remote memory, fair. Attention span and concentration, poor. Language, fair. Fund of knowledge, fair. Vocabulary, fair. Mood and affect, sad and dysphoric. Insight and judgment, fair to slightly impaired. ASSETS AND LIABILITIES Assets; the patient is articulate, able to take care of his ADL. Liability; history of depression and bipolar disorder. ADMITTING DIAGNOSES Psychiatric: Bipolar mood disorder, recurrent severe, depressed, F31.9. Secondary diagnosis: Deferred. Medical diagnoses: Acute kidney injury, on chronic kidney disease, stage 3 with both baseline creatinine level 1.6; history of hypokalemia; weight loss. Stressors: Psychosocial stressors. PSYCHIATRIC PLAN AND TREATMENT GOAL AND DISCHARGE PLAN 1. Advised to admit the patient on the inpatient unit. Provide safe, Unit #: [id number] #: [id number] Patient: TOMMY JEONG Dale CHAVIS supportive, and structured environment. 2. Plan to check CMP regularly. 3. Precaution for self-harm. 4. Advised to resume home medication if on discharge medication from [facility]'s and consider adjusting the dosage of Latuda. The patient to attend all the programing on the inpatient unit and monitor the patient's intake and output. The patient's treatment goal to attain euthymic mood, gain insight into his problem, and learn coping skills. 5. Discharge plan; plan to stabilize the patient and consider followup in outpatient program. ESTIMATED LENGTH OF STAY 7 to 10 days. Dictated by... Jonathan Potter/enrike TD: 09/30/2016 18:18 JOB #: [id number] PSYCHIATRIC ASSESSMENT Page 1 of 1 X Vasquez Briggs MD X PSYCHIATRIC ASSESSMENT
--- NOTE | ~2016-09-29 | PN ---
Unit #: [id number] #: [id number] Patient: OVIDIO HANSEN JR [id number] [facility] [address] [place] [address] [id number] I MR#: [id number] NAME: OVIDIO HANSEN JR ROOM: P255 Age: 71 Sex: M Admission Date: 09/29/2016 : 1945 Attending Physician: Vasquez Briggs M.D. Admitting Physician: Vasquez Briggs M.D. Primary Care Physician: Sharonda KIRBY PROGRESS NOTES DATE 10/01/2016 DISCUSSION Mr. Sanders is a 71-year-old male seen on 10/01/2016. Patient interviewed. Chart reviewed. Obtained information from nursing staff. Patient still somewhat guarded, flat affect, sad, dysphoric, paranoid, depressed, withdrawn, needing prompts to take care of his ADL as well as to eat. Still having significant symptoms of depression. Vital signs stable. Patient was able to eat his lunch and dinner but refusing to eat his breakfast. Complete review of system unremarkable. MENTAL STATUS EXAMINATION General appearance, patient thin built, dressed in hospital attire. Attention span, concentration poor. Oriented in place and person. Mood and affect sad, depressed. Speech monotone, slow, long pauses. Thought process coherent. Association, patient denied any suicidal or homicidal ideation but guarded. Recent and remote memory poor. Insight and judgement poor. DIAGNOSIS Major depressive disorder, recurrent, severe. ASSESSMENT/PLAN Advised to continue with current medication and therapeutic protocol. If needed, consider further adjustment of medication. Patient's current medication is Latuda 20 mg in the morning which was lowered, Cogentin 0.5 mg at bedtime. Patient is also on Levaquin, Periactin, Celexa, Lamictal, Norvasc, Remeron. Dictated by... Vasquez Briggs M.D. Osiris/leonor TD: 10/01/2016 20:25 JOB #: [id number] Unit #: [id number] #: [id number] Patient: OVIDIO HANSEN JR [facility] PROGRESS NOTES Page 1 of 1 X Vasquez Briggs MD NOTE
--- NOTE | ~2016-09-29 | PN ---
Unit #: [id number] #: [id number] Patient: OVIDIO HANSEN JR [id number] [facility] [address] [place] [address] [id number] I MR#: [id number] NAME: OVIDIO HANSEN JR ROOM: P255 Age: 71 Sex: M Admission Date: 09/29/2016 : 1945 Attending Physician: Vasquez Briggs M.D. Admitting Physician: Vasquez Briggs M.D. Primary Care Physician: Sharonda KIRBY PROGRESS NOTES DATE 10/02/2016 DISCUSSION Mr. Sanders is a 71-year-old male seen on 10/02/2016. Patient interviewed. Chart reviewed. Obtained information from nursing staff. Patient dressed in hospital attire, withdrawn, isolative, flat affect, guarded. Answered questions in short sentences, very confused, somewhat rigid, very weak, frail, needed to be fed this morning. Patient was given Ensure. Patient needed prompts to take care of his ADL as well as to eat. Patient has a history of failure to thrive, recent dehydration, poor intake of fluid. Complete review of system unremarkable. MENTAL STATUS EXAMINATION General appearance, patient dressed in hospital attire, thin built. Attention span, concentration poor. Orientation in self and place. Mood and affect labile. Speech slow in volume and rate. Thought process circumstantial. Patient denied any thoughts of harming self or others but somewhat guarded. Recent and remote memory poor. Insight and judgement poor. DIAGNOSIS Bipolar mood disorder, recurrent, severe, depressed. ASSESSMENT/PLAN Recommending at this time to transfer patient to [facility] for medical stabilization as patient is showing deterioration in his medical condition at this time. Patient's CBC showed hemoglobin 11.4, WBC 10.7. We will make arrangements for patient to be transferred to [facility]. Dictated by... Jonathan Potter/leonor TD: 10/02/2016 21:06 JOB #: [id number] Unit #: [id number] #: [id number] Patient: OVIDIO HANSEN JR [facility] PROGRESS NOTES Page 1 of 1 X Vasquez Briggs MD X PROGRESS NOTE
--- NOTE | ~2016-09-29 | HP ---
Unit #: [id number] #: [id number] Patient: TOMMY HANSEN JR [id number] [facility] [address] [place] [address] [id number] I MR#: [id number] NAME: TOMMY HANSEN JR ROOM: P255 Age: 71 Sex: M Admission Date: 09/29/2016 : 1945 Attending Physician: Vasquez Briggs M.D. Admitting Physician: Vasquez Briggs M.D. Primary Care Physician: Sharonda Cuevas HISTORY AND PHYSICAL HISTORY OF PRESENT ILLNESS Tommy is a 71-year-old male admitted on 09/29/[address] [place] [address] for depression and dementia and refusal to eat. He was previously admitted and transferred to [facility] on 09/27/2016. I reviewed the history and physical from his previous admission, there are no changes. However he was admitted to [facility] and diagnosed there with failure to thrive and urinary tract infection. Please see medical consult for further information. Dictated by... Rita Wan TD: 09/30/2016 23:49 JOB #: [id number] HISTORY AND PHYSICAL Page 1 of 1 X KEVIN WASSERMAN APRN X HISTORY AND PHYSICAL
--- NOTE | ~2016-09-29 | DS ---
Unit #: [id number] #: [id number] Patient: OVIDIO HANSEN JR [id number] [facility] [address] [place] [address] [id number] I MR#: [id number] NAME: OVIDIO HANSEN JR ROOM: P255 Age: 71 Sex: M Admission Date: 09/29/2016 : 1945 Discharge Date: 10/02/2016 Attending Physician: Vasquez Briggs M.D. Primary Care Physician: Sharonda Cuevas DISCHARGE SUMMARY REASON FOR ADMISSION Depression. DIAGNOSTIC STUDIES LABORATORY RESULTS: Remarkable for creatinine 1.6. HOSPITAL COURSE The patient was admitted to inpatient unit on 09/29/2016 and discharged on 10/02/2016. As the patient was having increase in creatinine, decreased appetite, poor intake, and changes in his labs, the patient was subsequently sent to [facility] for medical stabilization. The patient was subsequently discharged. DISCHARGE MEDICATIONS None. DISCHARGE DIAGNOSES Psychiatric: Bipolar mood disorder, recurrent severe depressed, F31.9. Secondary diagnosis: Deferred. Medical diagnosis: As per H and P. Stressors: Psychosocial stressors. DISCHARGE INSTRUCTIONS The patient to follow up as per [facility]. CONDITION ON DISCHARGE The patient was sad, depressed, withdrawn. Recent and remote memory, poor. Insight and judgment, poor. DISCHARGE INSTRUCTIONS The patient to follow up as per health and social care teacher. CONDITION ON DISCHARGE The patient was pleasant, cooperative, withdrawn. PROGNOSIS Guarded. DIET AND ACTIVITY As tolerated. Unit #: [id number] #: [id number] Patient: OVIDIO HANSEN JR Dictated by... Jonathan Potter/enrike TD: 10/21/2016 19:32 JOB #: [id number] DISCHARGE SUMMARY Page 1 of 1 X Vasquez Briggs MD DISCHARGE SUMMARY
--- NOTE | ~2016-09-29 | CO ---
Unit #: [id number] #: [id number] Patient: TOMMY HANSEN JR [id number] [place] [address] [id number] I MR#: [id number] NAME: TOMMY HANSEN JR ROOM: P255 Age: 71 Sex: M Admission Date: 09/29/2016 : 1945 Attending Physician: Vasquez Briggs M.D. Primary Care Physician: Sharonda Cuevas Consultation Date: 09/30/2016 CONSULTATION REPORT HISTORY OF PRESENT ILLNESS Tommy has a history of failure to thrive and UTI that was diagnosed at [facility] on a recent admission. He was treated there with Rocephin and began feeling better, he was eating and gaining weight and then he was discharged back to [facility]. He was given a prescription for Bactrim b.i.d. for 5 days. However, he does report an allergy to sulfa drugs. Currently, he is feeling much better. He is up in a wheelchair, move around on the unit and staff reports he has been drinking Ensure and eating really well. He has no complaints. PHYSICAL EXAMINATION CARDIAC: Regular rate and rhythm. No murmurs, gallops, or rubs. RESPIRATORY: Clear to auscultation bilaterally. ASSESSMENT AND PLAN Urinary tract infection. We will begin Cipro 500 mg p.o. b.i.d. for 5 days. We will also repeat BMP on 10/02/2016. Dictated by... Rita Wan/enrike TD: 09/30/2016 23:54 JOB #: [id number] CONSULTATION REPORT Page 1 of 1 X KEVIN WASSERMAN APRN X CONSULTATION REPORT
[~2016-09-29 10:00] MED LIST changes: +ACETAMINOPHEN650 M4 PO; +ADVANCED ANTAC355 ML PO; +CELEXA20 M1 PO; +CITALOPRAM HBR40 MG PO; +COGENTIN0.5 M1 PO; +COGENTIN1 M1 PO; +HALDOL PO; +HALOPERIDOL1 MG PO; +MILK OF MAGNESIA PO; +PERIACTIN4 MG PO; +WELLBUTRIN XL150 M1 PO
[2016-10-02 10:52] LABS: BUN/CREATININE RATIO 24.73; CREATININE SERUM 1.9 mg/dL (0.6-1.4); GLOM FILT RATE Estimated 34.9 mL/min (>60); POTASSIUM 4.4 mmol/L (3.5-5.1)
[2016-10-02] MEDS ORDERED: LATUDA20 MG PO (16:41)
[2016-10-02] MEDS ORDERED: ENSURE113 GM PO (16:41)
[2016-10-02] MEDS ORDERED: LEVAQUIN PO (16:41)
== END 2016-10-02 22:40 | DRG 885 ==
LOC: P2L 21:11
PROVIDERS: Family Medicine
DX: F33.2 Major depressive disorder, recurrent severe without psychotic features (principal); N17.9 Acute kidney failure, unspecified; N39.0 Urinary tract infection, site not specified; N18.3 Chronic kidney disease, stage 3 (moderate); R63.4 Abnormal weight loss
CPT/HCPCS: 80048

== ENCOUNTER 2016-10-02 15:58 | Inpatient (IN) | payer MEDICARE ==
[~2016-10-02] VITALS: Ht 185.4 cm; Wt 61.0 kg
--- NOTE | ~2016-10-02 | EKG ---
PATIENT: OVIDIO HANSEN UNIT #: [id number] Ventricular Rate: 58 BPM Atrial Rate: 58 BPM P-R Interval: 138 ms QRS Duration: 82 ms Q-T Interval: 424 ms QTC Calculation(Bezet): 416 ms P [place]: 78 degrees Calculated R [place]: 55 degrees Calculated T [place]: 61 degrees Diagnosis Line: Sinus bradycardia Diagnosis Line: Nonspecific T wave abnormality Diagnosis Line: Abnormal ECG Diagnosis Line: When compared with ECG of 20-SEP-2016 14:31, Diagnosis Line: Vent. rate has decreased BY 30 BPM Diagnosis Line: QT has shortened Diagnosis Line: Confirmed by JAROD MELENDEZ MD ([id number]) on Diagnosis Line: 10/05/2016 8:52:46 AM INTERPRETING MD: AL BLOOM
--- NOTE | ~2016-10-02 | FU ---
[facility] Nutrition Therapy DATE: 10/09/16 Patient: OVIDIO Hunter JR TYRONE Physician: BRIANDA Address: [address] Room/Bed: [address] [place] [address], Zip: [place] [address] Admit Date: 10/02/16 Date of : [birth year] Height: 6 1 Weight: 135 61.5 NUTRITION MONITORING/FOLLOW-UP: Reason: Nutrition follow-up Admitting dx: 71 y/o male with psych hx admitted with AMS, muscle rigidity, b/b incontinence Anthropometrics: Ht: 73", admission wt: 129 lbs, current wt: 135 lbs (10/08), BMI: 17 (underweight; based on admission wt) Labs: Na 146, GFR 55.3, other labs WNL Meds: Linzess, bowel regimen, zofran prn GI: BM 10/08, denies N/V at this time Skin: No significant issues, no edema Estimated Nutrition Needs: Increased Assessment: Chart reviewed, events noted. RD diagnosed with severe PCM on 09/28/16 during last admission. See 10/03/16 RD assessment for low BMI. Patient is now POD #1 R hip pinning. He was on a slick diet on 10/07, on clear liquids 10/08, then full liquids with chocolate Ensure BID this morning until he was made NPO for EGD this afternoon. On 10/[address] of abdomen/pelvis that showed increased size of his abdominal aortic aneurysm, ?PNA, constipation with moderate stomach distension and GERD. Of note, Dr. Briggs is following the patient. Pt states he is hungry and still wishes to receive Ensure supps. Plan is back to [place] once able. RD will continue to follow after EGD for tolerance of oral diet and intake. See nutrition dx, goals and recs below. Dx: Inadequate nutrient intake r/t clinical condition, depression AEB BMI 17, weight loss, dehydration - ACTIVE Intervention: Oral diet after EGD, Ensure BID Monitoring, Evaluation and Goals: 1. PO intake 50-75% of meals - NOT MET 2. Promote gradual weight gain - IN PROGRESS (weight up by 6 lbs since admission) No new goals Monitor: per protocol, criteria to determine if above goals met [facility] Nutrition Therapy DATE: 10/09/16 Patient: OVIDIO Dale HANSEN JR Physician: BRIANDA Address: [address] Room/Bed: [address] [place] [address], Zip: [place] [address] Admit Date: 10/02/16 Date of : [birth year] Height: 6 1 Weight: 135 61.5 Recommendations: 1. After the patients EGD restart oral diet and advance per WATCH INSPECTOR recommendations with no other dietary restrictions. Once diet advanced please order chocolate Ensure shakes BID. 2. Bowel regimen prn. Encourage increased fluid intake. Status: Moderate nutrition risk Respectfully, Georgie Cheng RD, LD Food and Nutritional Services [facility] cc: client file
--- NOTE | ~2016-10-02 | OR ---
Unit #: [id number] #: [id number] Patient: OVIDIO HANSEN JR [id number] [address] [place], [place] [address] [id number] I MR#: [id number] NAME: OVIDIO HANSEN JR ROOM: 566 Date of Procedure: 10/09/2016 Admission Date: 10/02/2016 Surgeon: Davy Arias M.D. : 1945 Attending Physician: Jimmy Bernal M.D. Primary Care Physician: Sharonda Cuevas A.P.R.N. OPERATIVE REPORT PRIMARY CARE PHYSICIAN Sharonda Cuevas, MACHINIST WOOD. PREOPERATIVE DIAGNOSES Abnormal CT that shows increased gastric contents as well as history of postprandial dyspepsia, retrosternal ascending heartburn. In addition, the patient has profound weight loss on a background of bipolar depression and increasing constipation. PROCEDURE PERFORMED Upper gastrointestinal endoscopy and biopsy. POSTOPERATIVE DIAGNOSES 1. The patient had grade 2 distal confluent ulcerative esophagitis. 2. Prepyloric antral gastritis, this was in the form of erosions, which were focal. 3. Rest of examination up to third part of duodenum was normal. A biopsy was obtained from the antrum for CLOtest. Specifically, no food or food residue was seen in the stomach. RECOMMENDATIONS Pantoprazole 40 mg p.o. b.i.d. the dose can be reduced to once a day after a couple of months. SEDATION USED MAC. DESCRIPTION OF PROCEDURE Following detailed explanation of the potential risks and complications of an upper endoscopy, namely perforation, bleeding, and complications related to sedation, the patient was brought to GI lab and laid in the left lateral decubitus position. Lubricated tip of Olympus video upper endoscope was passed through the bite block into the proximal esophagus under direct vision. The entire esophageal mucosa was examined. The patient was noted to have grade 2 distal confluent ulcerative esophagitis. The scope was then advanced into the gastric cavity and the latter was insufflated. Mucosa of the fundus, body, and antrum examined and a focal patchy gastritis noted in the form of antral erosions and erythema. Pylorus was intubated with visualization of the normal duodenal bulb and second and third part of the duodenum. Upon withdrawal and retroflexion, incisura, cardia, and greater curve examined and biopsy obtained from the Unit #: [id number] #: [id number] Patient: OIVDIO HANSEN JR antrum for CLOtest. The scope was withdrawn in the distal esophagus. The entire esophageal mucosa was examined all the way up to pharynx. No additional findings noted. The patient tolerated the procedure without any postprocedure complications. Dictated by... Jonathan Vila/enrike TD: 10/12/2016 01:35 JOB #: [id number] OPERATIVE REPORT Page 1 of 1 X Davy Arias MD X PROCEDURE OPERATIVE NOTE
--- NOTE | ~2016-10-02 | CT71 ---
[facility] A Service of [facility] & [facility] RADIOLOGY TEXT RESULTS PATIENT: OVIDIO HANSEN JR LOCATION: [facility] 566-01 : [birth year] UNIT #: [id number] AGE: [address]: Eliu Irizarry MD SEX: M ORDER DR: [id number] [facility] [address] [place], [place] [address] [id number] I MR#: [id number] Acc #: [id number] NAME: OVIDIO HANSEN JR : 1945 SEX: M STUDY DATE/TIME: 10/02/2016 17:39 UNIT: [facility] ROOM: [facility] STUDY DESCRIPTION: CT Head Wo Contrast Attending Physician: Eliu Irizarry M.D. Ordering Physician: Jen Sevilla M.D. Primary Care Physician: Sharonda Cuevas MEDICAL IMAGING REPORT This report is preliminary unless electronic signature is present EXAM CT head 10/02/2016 HISTORY Muscle rigidity weakness, confusion times today. TECHNIQUE This CT exam was performed with one or more of the following radiation dose reduction techniques: automatic control, adjustment of mA and/or kV according to patient size, and iterative reconstruction. FINDINGS CT head performed skull base through vertex without intravenous contrast. Brainstem unremarkable. Cerebellum and cerebral hemispheres show normal rivas matter - white matter differentiation. No hemorrhage. No evidence of acute cortical ischemia. There are some patchy subcortical areas of diminished white matter density at the bilateral vertices. No change and favored to reflect areas of chronic small vessel ischemia. There are some mild periventricular deep white matter tract probable sequelae of chronic microvascular ischemia as well. The midline structures are nondisplaced. No acute-appearing basal ganglia abnormality. No intra or extraaxial mass effect or abnormal intracranial fluid collection. The intraorbital soft tissues are unremarkable. The visualized paranasal sinuses and mastoid air cells show mucosal thickening or mucous retention cyst right maxillary sinus. There is no fracture. IMPRESSION 1. No acute abnormality is seen in the brain. If the patient has ongoing neurologic symptoms, consider follow up imaging. 2. Mild atrophy. 3. Subcortical periventricular and deep white matter tract probable sequelae of chronic microvascular ischemia. No significant change from prior study. [facility]. [facility] A Service of [facility] & [facility] RADIOLOGY TEXT RESULTS PATIENT: OVIDIO HANSEN JR LOCATION: [facility] 566-01 : [birth year] UNIT #: [id number] AGE: [address]: Eliu Irizarry MD SEX: M ORDER DR: Dictated by... Wilmer Márquez M.D. THIS IS AN ELECTRONICALLY VERIFIED REPORT Wilmer Márquez M.D. at 10/03/2016 2:37 PM ALISIA/miladis TD: 10/03/2016 02:42 JOB #: [id number] MEDICAL IMAGING REPORT Page 1 of 1 COPY
--- NOTE | ~2016-10-02 | US78 ---
[facility] A Service of [facility] & [facility] RADIOLOGY TEXT RESULTS PATIENT: OVIDIO HANSEN JR LOCATION: [facility] [address] : [birth year] UNIT #: [id number] AGE: [address]: Jimmy Bernal MD SEX: M ORDER DR: [id number] [facility] [address] [place], [place] [address] [id number] I MR#: [id number] Acc #: [id number] NAME: OVIDIO HANSEN JR : 1945 SEX: M STUDY DATE/TIME: 10/05/2016 7:54 UNIT: [facility] ROOM: [facility] STUDY DESCRIPTION: US Kidney Duplex Complete Attending Physician: Jimmy Bernal M.D. Ordering Physician: Boston Stokes M.D. Primary Care Physician: Mehul MoralesPThereseRTim MEDICAL IMAGING REPORT This report is preliminary unless electronic signature is present EXAM Renal Doppler INDICATIONS Chronic kidney disease and hypertension. TECHNIQUE Negron-scale, color Doppler and spectral Doppler waveform analysis was performed through the kidneys. FINDINGS Both kidneys are echogenic in appearance, right kidney in particular is also very small measuring 7.3 x 4.6 cm, left kidney measures 8.6 x 5.3 cm, and again is also echogenic. Velocities within the right renal artery are normal, measuring 86 cm/sec proximally, 99 cm/sec in the mid portion and 113 cm/sec distally. Proximal and mid left renal artery cannot be visualized; however, the velocity within the distal left renal artery is normal at 149 cm/sec. The waveforms of the renal arteries are poorly evaluated due to technique. The renal arterial-aortic ratio on the right is 0.9 and on the left is 1.2. There is a low-attenuation lesion noted arising from the right kidney measuring up to 1.2 x 1.1 x 1.0 cm. On the left, there is an additional hypoechoic lesion measuring 3.7 x 3.3 x 3.3 cm. Neither of these demonstrate color Doppler flow within them, but they do appear to have some internal echoes. I would suggest further evaluation with renal protocol CT or MRI. The mid and distal aorta cannot be seen. Of note, patient has a known aortic aneurysm that was seen in March 2016 and at that time measured up to 4.9 x 3.9 cm. IMPRESSION 1. No convincing evidence of hemodynamically significant renal arterial stenosis on this limited examination. Please note the mid and proximal left renal artery cannot be seen on this examination. On a prior CT from March 2016, this patient really had minimal STS. [facility] A Service of [facility] RADIOLOGY TEXT RESULTS PATIENT: OVIDIO HANSEN JR LOCATION: [facility] 566-01 : [birth year] UNIT #: [id number] AGE: [address]: Jimmy Bernal MD SEX: M ORDER DR: atherosclerotic plaque seen at the origins of the renal arteries. 2. The aorta cannot be seen on these images within the mid and distal portions, but patient has a known aortic aneurysm which was seen on that study and measured about 3.9 x 4.9 cm. 3. Low-attenuation lesions noted arising from both kidneys may reflect cysts but do appear to have some internal echoes. Further evaluation with renal protocol CT or MRI is recommended. These were also present on the prior CT, and at that time felt to be most in keeping with cysts, but again would be better assessed with contrast-enhanced imaging. 4. Both kidneys are echogenic and small in caliber, in keeping with history of chronic medical renal disease. Dictated by... Lizbet Chaudhary M.D. THIS IS AN ELECTRONICALLY VERIFIED REPORT Lizbet Chaudhary M.D. at 10/07/2016 4:57 PM AFF/psc TD: 10/05/2016 21:55 JOB #: [id number] MEDICAL IMAGING REPORT Page 1 of 1 COPY
--- NOTE | ~2016-10-02 | CO ---
Unit #: [id number] #: [id number] Patient: OVIDIO JEONG JR [id number] [address] [address] [id number] I MR#: [id number] NAME: OVIDIO JEONG JR ROOM: 566 Age: 71 Sex: M Admission Date: 10/02/2016 : 1945 Attending Physician: Jimmy Bernal M.D. Primary Care Physician: Sharonda Cuevas A.P.R.N. Consultation Date: 10/07/2016 CONSULTATION REPORT ADMITTING PHYSICIAN Dr. Irizarry. CONSULTING PHYSICIAN Dr. Ellis. REASON FOR CONSULT Right hip fracture. HISTORY OF PRESENT ILLNESS Mr. Jeong is a 71-year-old male who feel getting out of bed to use the restroom. He landed on the right side. His injury was about three days ago. Patient reports all of his pain is laterally. It does radiate to the mid femur. He denies any numbness. He is able to weightbear but does have a lot of pain with it. PAST MEDICAL HISTORY 1. Chronic kidney disease. 2. Bipolar. 3. Depression. 4. Psychosis. 5. Hypertension. 6. History of catatonia. 7. Abdominal aortic aneurysm. 8. Hemolytic anemia. 9. Benign adrenal mass. 10. Urinary tract infection. 11. Malnutrition. MEDICATIONS 1. Latuda. 2. Levaquin. 3. Ensure. 4. Haldol. 5. Cogentin. 6. Celexa. 7. Tylenol. 8. Milk of Magnesium. 9. Mirtazapine. 10. Periactin. 11. Amlodipine. 12. Wellbutrin. 13. Lamictal. Unit #: [id number] #: [id number] Patient: OVIDIO JEONG JR ALLERGIES None. PAST SURGICAL HISTORY Significant for tumor removal. SOCIAL HISTORY Patient was sent to the hospital from [facility]. Patient is a former smoker and quit about a year ago. No history of alcohol or drug abuse. FAMILY HISTORY Insignificant. REVIEW OF SYSTEMS Ten organ systems reviewed. Patient denies any blurry vision, congestion, sore throat, shortness of breath, chest pain, abdominal pain, urinary incontinence, numbness, tingling, skin ulcers or lesions, anxiety, depression. Positive for joint pain. PHYSICAL EXAMINATION GENERAL: In no acute distress. Alert and oriented x3. VITAL SIGNS: Temperature 97.7, pulse 66, respirations 17, blood pressure 141/69. HEENT: PERRLA. Nonicteric sclerae. THORAX: Trachea midline. No thyromegaly. CARDIAC: S1, S2. No extra sounds. No murmurs. LUNGS: Clear to auscultation. No rales. No rhonchi. ABDOMEN: Nondistended, nontender. Positive bowel sounds. GENITOURINARY: Deferred. MUSCULOSKELETAL: No erythema or ecchymosis. Two plus dorsalis pedis bilateral pulses. Range of motion is deferred. Tenderness to palpation over the greater trochanter. NEUROLOGIC: II-XII intact. SKIN: Cool and dry. PSYCHIATRIC: Good insight. Good judgment. Mood and affect are pleasant. DIAGNOSTIC STUDIES LABORATORY: Labs on admission: White count is 9.6, hemoglobin 10.9, hematocrit 32.8, platelets 174,000. INR is 1. IMAGING: X-rays, two views of the right hip, were ordered and reviewed and shows a transverse subcapital femoral neck fracture. ASSESSMENT Right hip fracture. PLAN I discussed treatment options with the patient and the patient's family who is at the bedside. Dr. Ramirez has reviewed the x-ray findings and we have recommended a right hip percutaneous pinning to be done by Dr. Ramirez on October 08, 2016 pending medical clearance. Risks and benefits of the procedure were explained as well as the description of procedure in its entirety along with any complications. The patient and the patient's family have decided to proceed. Will go ahead and get this scheduled, get the usual preoperative lab work and testing complete and have the patient medically cleared for surgery. Unit #: [id number] #: [id number] Patient: OVIDIO JEONG JR Dictated by... Jimena Land PThereseA.CTherese for Jonathan Newsome/marta TD: 10/07/2016 16:40 JOB #: [id number] CONSULTATION REPORT Page 1 of 1 X Jimena Land CONSULTATION REPORT
--- NOTE | ~2016-10-02 | OR ---
Unit #: [id number] #: [id number] Patient: OVIDIO JEONG JR [id number] [address] [place], [place] [address] [id number] I MR#: [id number] NAME: OVIDIO JEONG ROOM: 566 Date of Procedure: 10/08/2016 Admission Date: 10/02/2016 Surgeon: Kyler Ramirez M.D. : 1945 Attending Physician: Jimmy Bernal M.D. Primary Care Physician: Sharonda Cuevas OPERATIVE REPORT PREOPERATIVE DIAGNOSIS Right nondisplaced femoral neck fracture. POSTOPERATIVE DIAGNOSIS Right nondisplaced femoral neck fracture. PROCEDURE PERFORMED Right hip percutaneous pinning. DIGITAL LEARNING PLATFORMS MANAGER None. ANESTHESIA General with LMA. COMPLICATIONS None. SPECIMENS None. DRAINS None. SURGICAL IMPLANTS Three Jayshree 6.5 mm stainless steel partially threaded cannulated screws. INDICATIONS FOR PROCEDURE Mr. Jeong is a 71-year-old male, who was admitted to the hospital for malnutrition and dehydration. He has been treated. He was up out of bed two days prior and he fell landing on his right hip. He had pain in the hip. X-rays were taken and he was noted to have a minimally displaced valgus impacted subcapital femoral neck fracture. Based on the imaging, it was felt he would benefit from percutaneous pinning of the hip. Risks, benefits and alternatives were discussed with the patient and family and informed consent was obtained. Risks include, but not limited to, infection, bleeding, nerve injury, blood clots, risks associated with anesthesia, need for further surgery, and possibly . DESCRIPTION OF PROCEDURE On 10/08/2016, the patient was seen in the preoperative holding area, where surgical site was marked. The patient was on scheduled antibiotics. Unit #: [id number] #: [id number] Patient: OVIDIO JEONG JR H and P and consent updated. He was taken to the operating room and provided general anesthesia. He was moved to the fracture table. Right hip was prepped and draped in typical sterile fashion. Time-out performed confirming the correct surgical site and procedure. Fluoroscopy confirmed no changes in the alignment of the fracture site of the right hip. At this point, a 1 inch incision was made off the greater trochanter laterally. IT band carefully split. Three partially-threaded K-wires were placed into the hip in standard AO technique using inverted triangle formation. This was checked multiple times on the AP and lateral planes. Once the three pins were in appropriate position, they were measured and the lateral cortex was reamed with a cannulated reamer. Next, the three screws were placed. The K-wires were removed. Final AP and lateral images were taken confirming appropriate placement of hardware and reduction of fracture. At this point, wound was thoroughly irrigated. Deep tissue closed with 0 Vicryl suture followed by 2-0 Vicryl for subcutaneous tissues and lorin for skin. Then, 4x4s and Tegaderm were placed. The patient was subsequently awakened from general anesthesia in stable condition and taken to PACU postoperatively. POSTOPERATIVE PLAN The patient will be toe-touch weightbearing on the right lower extremity. He is on Lovenox currently and should be on it for 2 weeks. He is on scheduled antibiotics. SCDs. No complications encountered during the surgical procedure. Dictated by... Kyler Ramirez M.D. KIA/enrike TD: 10/08/2016 11:21 JOB #: [id number] OPERATIVE REPORT Page 1 of 1 X X PROCEDURE OPERATIVE NOTE
--- NOTE | ~2016-10-02 | CT4 ---
[facility] A Service of [facility] & [facility] RADIOLOGY TEXT RESULTS PATIENT: OVIDIO HANSEN JR LOCATION: [facility] 566 : [birth year] UNIT #: [id number] AGE: [address]: Jimmy Bernal MD SEX: M ORDER DR: [id number] [facility] [address] [place], [place] [address] [id number] I MR#: [id number] Acc #: [id number] NAME: OVIDIO HANSEN JR : 1945 SEX: M STUDY DATE/TIME: 10/06/2016 15:32 UNIT: [facility] ROOM: [facility] STUDY DESCRIPTION: CT Abd and Pelv Wo Cont Attending Physician: Jimmy Bernal M.D. Ordering Physician: Jimmy Bernal M.D. Primary Care Physician: Sharonda Cuevas MEDICAL IMAGING REPORT This report is preliminary unless electronic signature is present EXAM CT abdomen and pelvis without contrast INDICATIONS Right sided abdominal pain today. Recent weight loss. TECHNIQUE CT of the abdomen and pelvis was performed without contrast. Coronal and sagittal reformatted images were obtained. This CT exam was performed with one or more of the following radiation dose reduction techniques: automatic exposure control, adjustment of mA and/or kV according to patient size, and iterative reconstruction. COMPARISON 03/15/2016 FINDINGS Emphysema. There is increased patchy airspace opacities in the base of the right lower lobe. These are suspicious for pneumonia. Short-interval followup chest CT is recommended to document clearing. Pneumobilia. This is stable. The gallbladder is collapsed. The spleen is unremarkable. Stable left renal cyst. Stable right renal cyst. The adrenal glands demonstrate a stable low-density left adrenal gland nodule most likely adenoma measuring approximately 3 cm. Minimal interval increase in size of infrarenal abdominal aortic aneurysm. It measures 4.2 x 5.2 cm on today's study. Previously it measured 4.1 x 5 cm. There is a large amount of ingested material in the stomach and the stomach is distended. No evidence for bowel obstruction. Pelvis: There is a large stool along the rectum. Large amount of stool elsewhere in the colon. Findings suggest constipation. Normal appendix. [facility]. [facility] A Service of [facility] & [facility] RADIOLOGY TEXT RESULTS PATIENT: OVIDIO HANSEN JR LOCATION: [facility] 566-01 : [birth year] UNIT #: [id number] AGE: [address]: Jimmy Bernal MD SEX: M ORDER DR: Right inguinal hernia containing fluid. Diverticulosis. The bone windows are unremarkable. IMPRESSION 1. Slight interval increase in size of infrarenal abdominal aortic aneurysm. 2. New patchy airspace infiltrates in the base of the right lower lobe suspicious for pneumonia. Follow up to clearing is recommended. 3. Additional findings as described. Dictated by... James Vogel M.D. THIS IS AN ELECTRONICALLY VERIFIED REPORT James Vogel M.D. at 10/07/2016 10:29 AM ARS/elvin TD: 10/06/2016 18:41 JOB #: [id number] MEDICAL IMAGING REPORT Page 1 of 1 COPY
--- NOTE | ~2016-10-02 | MR95 ---
[facility] A Service of [facility] RADIOLOGY TEXT RESULTS PATIENT: OVIDIO HANSEN JR LOCATION: [facility] : 46 UNIT #: [id number] AGE: [address]: iJmmy Bernal MD SEX: M ORDER DR: [id number] [facility] [address] [place], [place] [address] [id number] I MR#: [id number] Acc #: [id number] NAME: OVIDIO HANSEN JR : 1945 SEX: M STUDY DATE/TIME: 10/07/2016 21:20 UNIT: [facility] ROOM: [facility] STUDY DESCRIPTION: MR Kidneys WWo Contrast Attending Physician: Jimmy Bernal M.D. Ordering Physician: Bhupendra Garsia Jr., M.D. Primary Care Physician: Sharonda Cuevas A.P.R.N. MRI CENTER REPORT This report is preliminary unless electronic signature is present. EXAM MRI abdomen with and without contrast INDICATION Left adrenal nodule and left kidney lesion on recent CT. Further characterization. PROCEDURE Multiplanar, multisequence MR imaging of the abdomen performed for renal protocol, prior to and following 11 mL of MultiHance. COMPARISON CT from 10/06/2016. FINDINGS The study is motion degraded. There is a 2.5 cm benign left adrenal adenoma. This shows clear loss of signal between in and out of phase imaging. The liver has normal size and morphology. No significant hepatic fat or iron deposition. Spleen, right adrenal gland, pancreas are unremarkable. Previous cholecystectomy. The bowel loops are nondilated. Moderately large colonic stool burden. Infrarenal abdominal aortic aneurysm measuring up to 4.1 cm. There are innumerable tiny cysts in both kidneys. There are a few benign proteinaceous or hemorrhagic cysts in the kidneys, including a 3.2 cm cyst in the posterior left kidney and a 1.6 cm cyst in the upper pole of the right kidney. ABDOMEN WITH CONTRAST: Motion degraded. No enhancing renal mass. No abnormal enhancement is seen in the abdomen. [facility] Service of [facility] RADIOLOGY TEXT RESULTS PATIENT: OVIDIO HANSEN JR LOCATION: [facility] 566-01 : 46 UNIT #: [id number] AGE: [address]: Jimmy Bernal MD SEX: M ORDER DR: IMPRESSION 1. Benign 2.5 cm left adrenal adenoma. No additional followup required. 2. Benign proteinaceous or hemorrhagic cysts as well as multiple other tiny, simple cysts in both kidneys. No enhancing renal mass. 3. Aneurysmal dilation of the infrarenal abdominal aorta. Dictated by... Kel Lopez M.D. THIS IS AN ELECTRONICALLY VERIFIED REPORT Kel Lopez M.D. at 10/12/2016 8:19 AM HOANG/jerson TD: 10/08/2016 11:17 JOB #: [id number] MRI CENTER REPORT Page 1 of 1 COPY
--- NOTE | ~2016-10-02 | CR151 ---
[facility] A Service of [facility] RADIOLOGY TEXT RESULTS PATIENT: OVIDIO HANSEN JR LOCATION: [facility] 566 : 46 UNIT #: [id number] AGE: [address]: Jimmy Bernal MD SEX: M ORDER DR: [id number] [facility] [address] [facility] [place], [place] [address] [id number] I MR#: [id number] Acc #: [id number] NAME: OVIDIO HANSEN JR : 1945 SEX: M STUDY DATE/TIME: 10/06/2016 15:08 UNIT: [facility] ROOM: [facility] STUDY DESCRIPTION: CR Hip Min 2 Views Rt Attending Physician: Jimmy Bernal M.D. Ordering Physician: Jimmy Bernal M.D. Primary Care Physician: Sharonda Cuevas A.P.R.N. MEDICAL IMAGING REPORT This report is preliminary unless electronic signature is present EXAM Right hip, 2 views. HISTORY Right hip pain after fall yesterday. FINDINGS Two views of the right hip demonstrates fairly subtle transverse subcapital fracture of the right femoral neck along its lateral margin with very subtle fracture impaction of 2 to 3 mm along the lateral subcapital femoral neck margin. No dislocation. Mild generalized demineralization. Dictated by... Marcial Keys M.D. THIS IS AN ELECTRONICALLY VERIFIED REPORT Marcial Keys M.D. at 10/07/2016 3:14 PM SERENITY/berkley TD: 10/06/2016 18:35 JOB #: [id number] MEDICAL IMAGING REPORT Page 1 of 1 COPY
--- NOTE | ~2016-10-02 | CR72 ---
[facility] A Service of [facility] RADIOLOGY TEXT RESULTS PATIENT: OVIDIO HANSEN JR LOCATION: [facility] 56- : 46 UNIT #: [id number] AGE: [address]: Eliu Irizarry MD SEX: M ORDER DR: [id number] [facility] [address] [place], [place] [address] [id number] I MR#: [id number] Acc #: [id number] NAME: OVIDIO HANSEN JR : 1945 SEX: M STUDY DATE/TIME: 10/02/2016 17:11 UNIT: [facility] ROOM: [facility] STUDY DESCRIPTION: CR Chest Single View Portable Attending Physician: Eliu Irizarry M.D. Ordering Physician: Jen Sevilla M.D. Primary Care Physician: Sharonda Cuevas MEDICAL IMAGING REPORT This report is preliminary unless electronic signature is present EXAM Chest x-ray 1-view portable HISTORY 71-year-old male patient presents with stiffness, shortness of breath with activity altered mental status history of essential hypertension COMMENT Single frontal portable view of the chest timed 17:11 on 10/02/2016 is reviewed. The comparison study is from 09/21/2016. Heart size is normal. Evidence of old granulomatous disease. No acute-appearing parenchymal infiltrate acute congestive failure, pleural effusion or pneumothorax. IMPRESSION No active disease. Dictated by... Marita Medina M.D. THIS IS AN ELECTRONICALLY VERIFIED REPORT Marita Medina M.D. at 10/05/2016 6:10 AM BERTRAND/miladis TD: 10/03/2016 01:18 JOB #: [id number] MEDICAL IMAGING REPORT Page 1 of 1 COPY
--- NOTE | ~2016-10-02 | CT57 ---
[facility] A Service of [facility] RADIOLOGY TEXT RESULTS PATIENT: OVIDIO HANSEN JR LOCATION: [facility] [place] [facility] 566 : 46 UNIT #: [id number] AGE: [address]: Jimmy Bernal MD SEX: M ORDER DR: [id number] [facility] [address] [place], [place] [address] [id number] I MR#: [id number] Acc #: [id number] NAME: OVIDIO HANSEN JR : 1945 SEX: M STUDY DATE/TIME: 10/07/2016 16:26 UNIT: [facility] [place] [facility] ROOM: [facility] STUDY DESCRIPTION: CT Chest Wo Cont Attending Physician: Jimmy Bernal M.D. Ordering Physician: Jimmy Bernal M.D. Primary Care Physician: Mehul MoralesPThereseRTim MEDICAL IMAGING REPORT This report is preliminary unless electronic signature is present EXAM CT chest without contrast HISTORY Chest pain today. Right lower lobe pneumonia. TECHNIQUE This CT exam was performed with one or more of the following radiation dose reduction techniques: automatic exposure control, adjustment of mA and/or kV according to patient size, and iterative reconstruction. FINDINGS CT chest without contrast demonstrates moderately severe bilateral diffuse emphysema and moderate scattered interstitial scarring in both lungs. Moderate patchy atelectasis or infiltrate in the right lower lobe, primarily in the posterior lower lobe. No additional infiltrates or atelectasis. No pleural effusions. No adenopathy. Calcified right hilar nodes and small calcified granuloma in the right lower lobe. Images of the upper abdomen demonstrate pneumobilia with extrahepatic biliary stent. Moderate distension of the stomach with fluid and air, and a small amount of fluid in the distal esophagus suggesting gastroesophageal reflux, and presenting the risk of aspiration. Left adrenal adenoma measures 1.8 x 3.3 cm. IMPRESSION 1. Moderate atelectasis or infiltrate in the posterior right lower lobe. 2. Moderately severe diffuse bilateral emphysema. 3. No adenopathy or effusions. No additional infiltrates. 4. Moderate distension of the stomach with fluid and air and a small amount of fluid in the distal esophagus suggesting gastroesophageal reflux. STS. [facility] A Service of [facility] RADIOLOGY TEXT RESULTS PATIENT: OVIDIO HANSEN JR LOCATION: [facility] [place] [facility] 566-01 : 46 UNIT #: [id number] AGE: [address]: Jimmy Bernal MD SEX: M ORDER DR: 5. Left adrenal adenoma measures 1.8 cm x 3.3 cm. Dictated by... Marcial Keys M.D. THIS IS AN ELECTRONICALLY VERIFIED REPORT Marcial Keys M.D. at 10/08/2016 4:31 PM SERENITY/livia TD: 10/07/2016 19:20 JOB #: [id number] MEDICAL IMAGING REPORT Page 1 of 1 COPY
--- NOTE | ~2016-10-02 | DS ---
Unit #: [id number] #: [id number] Patient: OVIDIO HANSEN JR [id number] [address] [place], [place] [address] [id number] I MR#: [id number] NAME: OVIDIO HANSEN JR ROOM: 566 Age: 71 Sex: M Admission Date: 10/02/2016 : 1945 Discharge Date: 10/10/2016 Attending Physician: Jimmy Bernal M.D. Primary Care Physician: Sharonda Cuevas DISCHARGE SUMMARY REASON FOR ADMISSION Sent from [facility] secondary to catatonic state, incontinence of bowel and bladder. HISTORY OF PRESENT ILLNESS/HOSPITAL COURSE The patient is a 71-year-old gentleman, with a prior history of bipolar depression, psychosis, catatonic state in past, chronic kidney disease followed by Dr. Lovell and Rose Marie, prior history of anemia, chronic constipation who was admitted secondary to increased incontinence of bowel and bladder, as well as suspicion for extrapyramidal symptoms with decreased p.o. intake and lethargy. He was sent to the emergency department where he it found that he had a sodium of 153, creatinine of 1.7, and he was thus admitted for the same. In regards to the patient's catatonic state, consultation was placed to Dr. Briggs and Rose Marie for further evaluation. The patient's antipsychotic medications were gradually deescalated. His mental status actually started improving through hospital course. In regards to the patient's chronic kidney disease, as well as acute kidney injury which was seen at the time of admission, consultation was placed to Dr. Garsia and Rose Marie for evaluation. He was initially placed on appropriate IV fluids in regards to his hypernatremia, these were late discontinued. He did undergo, eventually through this hospital course, a CT of the abdomen and pelvis secondary o increased abdominal discomfort which had revealed findings consistent with chronic constipation and also revealed renal cyst with questionable echogenic centers and concern for possible underlying carcinoma. Therefore, the patient did undergo a MRI of kidneys with and without contrast which had come back showing a benign nature of the aforementioned cyst. From a kidney standpoint, the patient is now stable. We were initiating plans for the patient to be discharged to a rehab facility when he began ambulating he had an awkward fall, he fell into his right side and underwent x-ray of his right hip which did reveal a right femoral neck fracture. Consultation was then placed to Dr. Ellis. The patient did undergo right hip pinning with no intraoperative or postoperative complications. From an orthopaedic standpoint, the patient is now cleared. On the aforementioned CT of the abdomen and pelvis, did raise the Unit #: [id number] #: [id number] Patient: OVIDIO HANSEN possibility of right lower lobe pneumonia, it was appropriately treated while he was here, concern for possible underlying aspiration was made as well, and therefore, speech therapy services were also consulted, they did clear the patient with appropriate dietary modifications. It is recommended, at the time of discharge, that he be kept upright for all meals. Secondary to dysphagia, this prompted a consultation with Dr. Arias. The patient did undergo an upper GI endoscopy which did not reveal any acute findings. Currently, the patient appears clinically stable for transition to rehab facility. Plans have been reviewed with the patient's sister, who is also a RN. FINAL DISCHARGE DIAGNOSES 1. Catatonic state seen on admission, now resolved. 2. Major depressive disorder. 3. History of bipolar. 4. Right hip fracture, status post fall. 5. Pneumonia, questionable aspiration. 6. Dysphagia. 7. Chronic constipation. 8. Failure to thrive. 9. Weight loss likely secondary to psychogenic etiology. 10. Accgs-al-misszge kidney disease. 11. Malnutrition likely plindtsl-jx-argouq. 12. Gastritis seen on upper GI endoscopy. 13. Ulcerative esophagitis seen on endoscopy. 14. History of hypertension. FINAL DISCHARGE MEDICATIONS 1. Tylenol 650 mg p.o. q.4-6 p.r.n. 2. Mag-Ox 330 mL p.o. q.6 p.r.n. 3. Lamictal 25 mg p.o. b.i.d. 4. Wellbutrin XL 150 mg p.o. q.a.m. 5. Celexa 40 mg p.o. daily 6. Periactin 4 mg p.o. daily 7. Benadryl 25 mg p.o. q.6 p.r.n. 8. Latuda 20 mg p.o. q.a.m. 9. Ensure supplement t.i.d. with meals 10. Norvasc 5 mg p.o. daily 11. Linzess 290 mcg p.o. daily 12. Protonix 40 mg p.o. b.i.d. 13. [place] 5/325 one tablet p.o. q.6 p.r.n. 14. Augmentin 875 mg p.o. b.i.d. x7 days DISCHARGE CONDITION Stable. DISCHARGE DISPOSITION Rehab. Dictated by... Unit #: [id number] #: [id number] Patient: OVIDIO HANSEN JR, M.D. ISN/lona TD: 10/10/2016 11:08 JOB #: [id number] DISCHARGE SUMMARY Page 1 of 1 X Jimmy Bernal MD X DISCHARGE SUMMARY
--- NOTE | ~2016-10-02 | CT71 ---
[facility] A Service [facility] RADIOLOGY TEXT RESULTS PATIENT: OVIDIO HANSEN LOCATION: [facility] [address] : 47 UNIT #: [id number] AGE: [address]: Jimmy Bernal MD SEX: M ORDER DR: [id number] [facility] [address] [facility] [place], [place] [address] [id number] I MR#: [id number] Acc #: [id number] NAME: OVIDIO HANSEN JR : 1945 SEX: M STUDY DATE/TIME: 10/05/2016 21:34 UNIT: [facility] ROOM: [facility] STUDY DESCRIPTION: CT Head Wo Contrast Attending Physician: Jimmy Bernal M.D. Ordering Physician: Karime Garcia M.D. Primary Care Physician: Sharonda Cuevas A.P.R.N. MEDICAL IMAGING REPORT This report is preliminary unless electronic signature is present EXAM Noncontrast CT head. DATE 10/05/2016 HISTORY Fall today, hit head. Head pain today. Abrasion on right forehead. Additional history of hypertension. COMPARISON Noncontrast CT head, 10/02/2016. TECHNIQUE This CT exam was performed with one or more of the following radiation dose reduction techniques: automatic exposure control, adjustment of mA and/or kV according to patient size, and iterative reconstruction. FINDINGS No displaced calvarial fracture is seen. Mucous retention cyst or polyp is seen within the right maxillary sinus. Chronic microvascular disease changes are present within the deep white matter, with chronic-appearing lacunar infarcts within the bifrontal subcortical regions being unchanged from 10/02/2016. Negron matter-white matter junction distinction appears preserved, without CT evidence of acute or evolving infarct. No intracranial hemorrhage, mass lesion, mass effect or midline shift is appreciated. Stable ventricular prominence likely related to parenchymal atrophy. IMPRESSION 1. No acute intracranial findings. 2. Chronic microvascular disease changes and generalized cerebral atrophy without significant change compared to 10/02/2016. [facility] A Service [facility] RADIOLOGY TEXT RESULTS PATIENT: OVIDIO HANSEN JR LOCATION: [facility] 566-01 : 47 UNIT #: [id number] AGE: [address]: Jimmy Bernal MD SEX: M ORDER DR: Dictated by... Karen Vernon M.D. THIS IS AN ELECTRONICALLY VERIFIED REPORT Karen Vernon M.D. at 10/06/2016 9:52 PM CLEM/milton TD: 10/06/2016 11:20 JOB #: [id number] MEDICAL IMAGING REPORT Page 1 of 1 COPY
--- NOTE | ~2016-10-02 | CR151 ---
[facility] A Service of [facility] & [facility] RADIOLOGY TEXT RESULTS PATIENT: OVIDIO HANSEN JR LOCATION: [facility] 566 : 47 UNIT #: [id number] AGE: [address]: Jimmy Bernal MD SEX: M ORDER DR: [id number] [facility] [address] [place], [place] [address] [id number] I MR#: [id number] Acc #: [id number] NAME: OVIDIO HANSEN JR : 1945 SEX: M STUDY DATE/TIME: 10/08/2016 UNIT: [facility] ROOM: [facility] STUDY DESCRIPTION: CR Hip Min 2 Views Rt Attending Physician: Jimmy Bernal M.D. Ordering Physician: Kyler Ramirez M.D. Primary Care Physician: Sharonda Cuevas A.P.R.N. MEDICAL IMAGING REPORT This report is preliminary unless electronic signature is present EXAM Right hip intraoperative views 10/08/2016 1022 hours HISTORY Acute hip fracture for ORIF by Dr. Ramirez. FINDINGS Following 1 minute and 16 seconds of fluoroscopy time, 2 images of the right hip are submitted by Dr. Ramirez. These films demonstrate 3 bone screws traversing through the femoral neck fracture, all terminating in the femoral head. The alignment is anatomic. IMPRESSION 2 intraoperative views following 1 minute and 16 seconds of fluoroscopy confirm the presence of 3 bone screws through the femoral neck with tips in the femoral head. The alignment is anatomic. Dose is not recorded on the images. Dictated by... Chelsey Dai M.D. THIS IS AN ELECTRONICALLY VERIFIED REPORT Chelsey Dai M.D. at 10/08/2016 2:37 PM PER/livia TD: 10/08/2016 12:50 JOB #: [id number] MEDICAL IMAGING REPORT Page 1 of 1 COPY
--- NOTE | ~2016-10-02 | CO ---
Unit #: [id number] #: [id number] Patient: TOMMY JEONG [id number] [address] [place], [place] [address] [id number] I MR#: [id number] NAME: TOMMY JEONG ROOM: 566 Age: 71 Sex: M Admission Date: 10/02/2016 : 1945 Attending Physician: Eliu Irizarry M.D. Primary Care Physician: Sharonda Cuevas A.P.R.N. Consultation Date: 10/03/2016 CONSULTATION REPORT REASON FOR CONSULTATION Depression and catatonia. HISTORY OF PRESENT ILLNESS Mr. Tommy Jeong is a 71-year-old white male, transferred from [facility] due to poor intake, rigidity. The patient dressed in hospital attire, lying in a propped up position in bed. The patient was holding his arms on this chest and neck was slightly arched looking up on the ceiling. The patient did not answer any question, very guarded, paranoid, flat affect. The patient's information obtained from the nursing staff and also from the chart reviewed. The patient's vital signs; temperature 98.6, pulse 57, respirations 18, blood pressure 128/63, oxygen saturations 96%, the patient ate well this morning as well as in the afternoon. PAST PSYCHIATRIC HISTORY Remarkable for [facility] and history of diagnosis of bipolar mood disorder, and was on lithium for many years. MEDICAL HISTORY Remarkable for history of chronic kidney disease, baseline creatinine 1.6; history of bipolar mood disorder; hypertension; history of catatonia, abdominal aortic aneurysm 5.6 cm; history of hemolytic anemia; benign adrenal mass; history of UTI; decreased p.o. intake. MEDICATIONS The patient is on Latuda 20 mg daily, Levaquin 500 mg daily, Ensure, Celexa 40 mg daily, mirtazapine 45 mg daily amlodipine. FAMILY HISTORY AND SOCIAL HISTORY The patient has a good support system. No history of abuse. No history of any substance abuse. REVIEW OF SYSTEMS Complete review of systems is unremarkable. Vital signs, please see above. MENTAL STATUS EXAMINATION General appearance, the patient dressed in hospital attire, lying comfortably in bed, seemed rather stressed and attention span and concentration, poor. Speech, very slow, answering in one word. Orientation in self. Mood and affect, flat. Thought process, circumstantial. Thought content, guarded, paranoid, but denied any thoughts of harming self or others. Recent and remote memory, poor. Language, fair. Fund of knowledge, fair. Insight and judgment, impaired. Unit #: [id number] #: [id number] Patient: TOMMY JEONG DIAGNOSES Psychiatric: Bipolar mood disorder, recurrent, severe, depressed, F31.9. Secondary diagnosis: Deferred. Medical diagnosis: Please refer to H and P. Stressors: Psychosocial stressors. ASSESSMENT AND PLAN 1. Supportive psychotherapy and psychoeducation provided to the patient, but the patient unable to comprehend much. 2. Advised at this time to continue with current treatment here, stabilize medically. The patient has not shown much improvement [facility] at [facility]. Plan to consider alternative placement. We will discuss with family. Please feel free to call if any question telephone #[phone]. Dictated by... Vasquez Briggs M.D. SADIE/enrike TD: 10/03/2016 20:06 JOB #: [id number] CONSULTATION REPORT Page 1 of 1 X Vasquez Briggs MD X CONSULTATION REPORT
--- NOTE | ~2016-10-02 | CO ---
Unit #: [id number] #: [id number] Patient: OVIDIO JEONG JR [id number] [facility] [address] [facility]. [place], [place] [address] [id number] I MR#: [id number] NAME: OVIDIO JEONG JR ROOM: 566 Age: 71 Sex: M Admission Date: 10/02/2016 : 1945 Attending Physician: Jimmy Bernal M.D. Primary Care Physician: Sharonda Cuevas A.P.R.N. Consultation Date: 10/08/2016 CONSULTATION REPORT REASON FOR CONSULTATION Abnormal CT scan of the abdomen, increasing constipation, weight loss. HISTORY Mr. Jeong is a very pleasant 71-year-old white gentleman. Patient has longstanding history of bipolar, depression and while he was recuperating in a rehab center at [facility], he fell down and sustained a fracture of his right femoral neck. Patient underwent internal fixation surgery on the hip earlier today. He is wide awake now. He has a longstanding history of bipolar, depression and used to live with his mom most of his adult life. Lately, he has been by himself and is having a hard time managing. There is history of profound weight loss. Patient denies any history of nausea or vomiting; however, his CAT scan shows considerable fecal loading and also presence of food residue or debris in the stomach with air-fluid levels as well as suggestion of reflux. He does have a longstanding history of dyspeptic symptoms. PAST MEDICAL HISTORY 1. History of bipolar, depression and psychosis. 2. History of hypertension. 3. History of catatonia. 4. History of hemolytic anemia in the past. 5. History of a recent UTI. 6. Poor oral intake and profound weight loss. 7. History of chronic kidney disease. Baseline creatinine is 1.6. SOCIAL HISTORY Lives alone. Used to smoke, but quit about a year ago. Does not drink alcohol. FAMILY HISTORY Significant for mother having COPD. MEDICATIONS Current medications before admission were: 1. Latuda. 2. Levaquin. 3. Ensure. 4. Haloperidol. 5. Cogentin. 6. Celexa. 7. Tylenol. 8. Milk of Magnesia. 9. Periactin. Unit #: [id number] #: [id number] Patient: OVIDIO JEONG JR 10. Amlodipine. 11. Wellbutrin. 12. Lamictal. These medications have been changed lately, and he has been started on a new medicine by the name of Latuda which has helped him a lot in terms of depression. REVIEW OF SYSTEMS A detailed review of organ system does not reveal any fever, chills, or rigors. History of profound weight loss of at least 50 pounds. No headaches, seizures, chest pain, syncope. No history of cough, expectoration, hemoptysis. No history of dysuria, hematuria, or pyuria. No history of focal seizures or extremity weakness. Rest of review of organ systems unremarkable. PHYSICAL EXAMINATION GENERAL: Awake, alert, and oriented and appears comfortable. VITAL SIGNS: Stable with a temperature of 98.5, pulse 64 per minute and regular, respiratory rate 18, blood pressure 144/62. He weighs 135 pounds and used to weigh about 170 pounds in the past. HEENT: He has mild pallor. There being no icterus, lymphadenopathy, or peripheral edema. CARDIOVASCULAR: Normal heart sounds. No murmurs. LUNGS: Auscultation over the lungs reveal normal breath sounds. Good air entry. ABDOMEN: Soft, nontender. Liver and spleen are not palpable. Bowel sounds normal. DIAGNOSTIC STUDIES LABORATORY: Hemoglobin 10 with normochromic normocytic indices. Platelet count and white counts normal. INR is 1.1. Serum chemistry shows normal BUN and creatinine and baseline yesterday were 34 and 1.6. Albumin was surprisingly preserved at 3.6. LFT were normal. (1) hemoglobin was 6.1. IMAGING: Patient had a CT scan of the abdomen that shows (2) and also air-fluid levels in the stomach with some intragastric food residue. CLINICAL IMPRESSION Patient with bipolar, depression. May have underlying gastroparesis and constipation. It is noteworthy patient has never had an endoscopy or colonoscopy in the past. He is currently just post surgery for hip fracture and the ideal time to do colonoscopy is when he is recuperated from the hip fracture and is mobile. An upper endoscopy, however, is reasonable to look for any evidence of gastric outlet obstruction or gastroparesis. The above plan was discussed with the patient's sister, Arabella, who concurred. Thank you very much for asking me to see this pleasant gentleman. I appreciate the consult. Dictated by... Davy Arias M.D. Unit #: [id number] #: [id number] Patient: OVIDIO JEONG JR JEAN/marta TD: 10/09/2016 17:15 JOB #: [id number] CC: Jonathan Palafox A.PThereseRTim CONSULTATION REPORT Page 1 of 1 X Davy Arias MD X CONSULTATION REPORT
--- NOTE | ~2016-10-02 | CO ---
Unit #: [id number] #: [id number] Patient: TOMMY JEONG JR [id number] [address] [place], [place] [address] [id number] I MR#: [id number] NAME: TOMMY JEONG JR ROOM: 566 Age: 71 Sex: M Admission Date: 10/02/2016 : 1945 Attending Physician: Jimmy Bernal M.D. Primary Care Physician: Sharonda Cuevas A.P.R.N. Consultation Date: 10/07/2016 CONSULTATION REPORT DISCUSSION Mr. Tommy Jeong is a 71-year-old male seen in room 566 bed-1 on 10/07/16. Patient was compliant, cooperative. Mood was brighter. Patient showing improvement in his mood. X-ray of his pelvis showed mild generalized demineralization. There is a subtle transfer subcapital fracture of the right femoral neck along its lateral margin. The patient also had a problem with constipation and showed there is a large stool along the rectum. Patient was also diagnosed with symptoms suggestive of pneumonia and currently receiving treatment. WBC 9.6, hemoglobin 10.9. Creatinine 1.4. Vital signs - 98.8, 68, 18, 130/58. Oxygen saturation 98%. REVIEW OF SYSTEMS Complete review of systems unremarkable. MENTAL STATUS EXAMINATION GENERAL APPEARANCE: Patient dressed in hospital attire, lying comfortably in bed. Attention span and concentration fair. Speech - regular rate, coherent. Oriented in time, place and person. Mood and affect was brighter than yesterday. Made good eye contact. Spontaneous speech. Thought process coherent. Thought content - patient denied any suicidal or homicidal ideation. Denied any psychotic symptom but still sad, dysphoric. Recent and remote memory fair. Language fair. Fund of knowledge fair. Insight and judgment fair to slightly impaired. DIAGNOSIS PSYCHIATRIC: Bipolar mood disorder, recurrent, severe, depressed - F31.9. ASSESSMENT/PLAN 1. Supportive psychotherapy and psychoeducation provided to patient. 2. Educated about benefits and side effects of medications and course and prognosis of illness. 3. Advised to continue with the current combination of medications, Latuda 20 mg daily, Lamictal 25 mg b.i.d., Wellbutrin 150 mg in the morning and Celexa 40 mg daily. If needed, consider further additional medication. Dictated by... Vasquez Briggs M.D. Unit #: [id number] #: [id number] Patient: TOMMY JEONG JR/griselda TD: 10/08/2016 07:08 JOB #: [id number] CONSULTATION REPORT Page 1 of 1 X Vasquez Briggs MD X CONSULTATION REPORT
--- NOTE | ~2016-10-02 | CO ---
Unit #: [id number] #: [id number] Patient: TOMMY JEONG JR [id number] [facility] [address] [facility]. [place], [place] [address] [id number] I MR#: [id number] NAME: TOMMY JEONG JR ROOM: 566 Age: 71 Sex: M Admission Date: 10/02/2016 : 1945 Attending Physician: Jimmy Bernal M.D. Primary Care Physician: Sharonda Cuevas A.P.R.N. Consultation Date: 10/08/2016 CONSULTATION REPORT REASON FOR CONSULTATION Followup. DISCUSSION Mr. Tommy Jeong is a 71-year-old male seen on in room 566, bed 1 on 10/08/16 at [facility]. The patient had surgery this morning. The patient had acute hip fracture ORIF done. The patient is compliant, cooperative, able to eat his lunch. No agitation, mild confusion. Reports feeling better. Vital signs - 98.1, 65, 18, 131/64. Oxygen saturation 100%. Denied any suicidal or homicidal ideation. REVIEW OF SYSTEMS A complete review of systems is unremarkable. MENTAL STATUS EXAMINATION General appearance - Patient is dressed in hospital attire, lying comfortably. Attention span, concentration - Fair. Speech - Low in volume. Oriented to time, place and person. Mood and affect - Sad, dysphoric. Thought process - Coherent. Thought content - The patient denied any suicidal or homicidal ideation but guarded, withdrawn. Recent and remote memory - Fair to slightly impaired. Language - Fair. Fund of knowledge - Fair. Insight and judgment - Fair to slightly impaired. DIAGNOSIS PSYCHIATRIC: Bipolar mood disorder, recurrent, severe, depressed - F31.9. SECONDARY DIAGNOSIS: Deferred. ASSESSMENT AND PLAN 1. Supportive psychotherapy and psychoeducation provided to the patient. 2. Educated about benefits and side effects of medication and course and prognosis of illness. 3. Advised to continue with the current medication. If needed, consider further adjustment of medication. We will continue to follow. Patient is currently on Latuda 20 mg daily. Please feel free to call with any questions, telephone number . Dictated by... Vasquez Briggs M.D. Unit #: [id number] #: [id number] Patient: TOMMY JEONG JR/karmen TD: 10/09/2016 10:22 JOB #: [id number] CONSULTATION REPORT Page 1 of 1 X Vasquez Briggs MD CONSULTATION REPORT
--- NOTE | ~2016-10-02 | CO ---
Unit #: [id number] #: [id number] Patient: TOMMY JEONG JR [id number] [facility] [address] [facility]. [place], [place] [address] [id number] I MR#: [id number] NAME: TOMMY JEONG JR ROOM: 566 Age: 71 Sex: M Admission Date: 10/02/2016 : 1945 Attending Physician: Jimmy Bernal M.D. Primary Care Physician: Sharonda Cuevas A.P.R.N. Consultation Date: 10/06/2016 CONSULTATION REPORT REASON FOR CONSULTATION Followup. DISCUSSION Mr. Tommy Jeong is a 71-year-old male seen in room 566 bed-1 on 10/06/16 at [facility]. The patient was pleasant and cooperative, sitting in a propped up position, eating breakfast. Made good eye contact. Patient was more alert, awake, able to answer questions appropriately. Patient denied any suicidal or homicidal ideation. Denied any psychotic symptoms. The patient reports that he is feeling better but still reporting pain in his hip and trouble with chest congestion. Vital signs - 100.1, 82, 18, 121/53. Oxygen saturation 93%. MENTAL STATUS EXAMINATION GENERAL APPEARANCE: Patient dressed casually, sitting comfortably in bed. Attention span and concentration fair. Speech low in volume but regular rate. Orientation in time, place and person. Mood and affect sad, dysphoric. Thought process coherent. Thought content - patient denied any thoughts of harming self or others nor any hallucination. Recent and remote memory fair. Language intact. Fund of knowledge fair to slightly impaired. Insight and judgment fair to slightly impaired. DIAGNOSIS PSYCHIATRIC: Bipolar mood disorder, recurrent, severe, depressed - F31.9. SECONDARY DIAGNOSIS Deferred. ASSESSMENT/PLAN 1. Supportive psychotherapy and psychoeducation provided to patient. 2. Educated about benefits and side effects of medication and course and prognosis of illness. 3. Advised to continue with current medication. If needed, consider adjustment of Latuda. Continue with the inpatient programming at this time. Dictated by... Vasquez Briggs M.D. SADIE/griselda Unit #: [id number] #: [id number] Patient: TOMMY JEONG JR TD: 10/08/2016 07:00 JOB #: [id number] CONSULTATION REPORT Page 1 of 1 X Vasquez Briggs MD CONSULTATION REPORT
--- NOTE | ~2016-10-02 | CO ---
Unit #: [id number] #: [id number] Patient: TOMMY JEONG JR [id number] [facility] [address] [facility]. [place], [place] [address] [id number] I MR#: [id number] NAME: TOMMY JEONG JR ROOM: 566 Age: 71 Sex: M Admission Date: 10/02/2016 : 1945 Attending Physician: Jimmy Bernal M.D. Primary Care Physician: Sharonda Cuevas A.P.R.N. Consultation Date: 10/09/2016 CONSULTATION REPORT REASON FOR CONSULTATION Followup. DISCUSSION Mr. Tommy Jeong is a 71-year-old male, seen in room 566, bed 1 on 10/09/2016 at [facility]. The patient able to answer questions appropriately. Speech was spontaneous with good eye contact. Patient reported that his pain is better, as he had surgery, unable to participate in physical therapy. The patient's vital signs: 98.3, 62, 18, 102/72. Oxygen saturation 96%. The patient was not hungry and did not eat any breakfast, but able to eat his dinner. The patient denied any suicidal or horizontal ideation. COMPLETE REVIEW OF SYSTEM Unremarkable. MENTAL STATUS EXAMINATION VITAL SIGNS: Please see above. GENERAL APPEARANCE: Patient dressed casually, lying comfortably in bed. ATTENTION SPAN AND CONCENTRATION: Fair. SPEECH: Regular rate and spontaneous. ORIENT: In time, place, and person. MOOD AND AFFECT: Sad, dysphoric, flat. THOUGHT PROCESS: Circumstantial. THOUGHT CONTENT: Patient denied any suicidal or homicidal ideation. Denied any hallucinations. RECENT AND REMOTE MEMORY: Fair. LANGUAGE: Intact. FUND OF KNOWLEDGE: Fair. INSIGHT AND JUDGMENT: Fair to slightly impaired. DIAGNOSES Psychiatric: Bipolar mood disorder, recurrent, severe depressed F31.9. ASSESSMENT/PLAN 1. Supportive psychotherapy and psychoeducation provided to the patient. 2. Educated about benefits and side effects of medication and course and prognosis of illness. 3. Advised to continue with current medication. If needed, will consider further adjustment of medication. We will continue to Unit #: [id number] #: [id number] Patient: TOMMY JEONG JR follow. Please feel free to call if any questions telephone number . Dictated by... Jonathan Potter/jg TD: 10/12/2016 09:46 JOB #: [id number] CONSULTATION REPORT Page 1 of 1 X Vasquez Briggs MD X CONSULTATION REPORT
--- NOTE | ~2016-10-02 | A ---
[facility] Nutrition Therapy DATE: 10/03/16 Patient: OVIDIO HANSEN JR Physician: BRIANDA Address: [address] [facility] [address] Room/Bed: [address] [place] [address], Zip: [place] [address] Admit Date: 10/02/16 Date of : [birth year] Height: 6 1 Weight: 106 48.5 NUTRITIONAL ASSESSMENT: REASON: LOW BMI (17.0) PATIENT ADMITTED FOR AMS, MUSCLE RIGIDITY, BOWEL/BLADDER INCONTINENCE PMH: BIPOLAR DISORDER, DEPRESSION, PSYCHOSIS, CATATONIA, CKD STG 3, ANEMIA, RECENT UTI, HTN Anthropometrics: HT; 73", WT: 129#, BMI: 17.0 Labs: 10/03/16- NA: 158, GLU: 139, BUN: 40, CREA: 1.7, CA: 10.3, PHOS: 2.3, GFR: 40, HGBA1C (09/21): 6.1 Meds: WELLBUTRIN XL, COGENTIN, 5% DEXTROSE, CELEXA, NACL I/O & Bowel function: 695/7, LBM 10/01/16 Skin Integrity: LARGE SCRATCH FROM FALL, INTACT Estimated Nutrition Needs: INCREASED 2' WEIGHT LOSS, LOW BMI Assessment: PATIENT IS A 71 Y/O MALE ADMITTED FOR AMS, MUSCLE RIGIDITY, AND BOWEL/BLADDER INCONTINENCE. PATIENT WAS SEEN BY [facility] [address] ON 09/21 AND 09/28, AND BY THIS RD AT [facility] ON 09/23/16 AND 09/30/16- NOTES REVIEWED. PATIENT HAS SEVERELY LOW PO INTAKES AND A POOR APPETITE. WEIGHT HX PER [facility] SHOWS RELATIVELY STABLE WEIGHTS FOR LAST 2 WEEKS, HOWEVER PATIENT HAS HAD A ~40# WEIGHT LOSS X LAST 8 MONTHS. PATIENT WAS ADMITTED TO [facility] FOR DEPRESSION, CONFUSION, AND SI. WHILE THERE PATIENT WAS REFUSING TO EAT AND THEREFORE BECAME DEHYDRATED. HE WASN'T ABLE TO ANSWER QUESTIONS APPROPRIATELY AND NEEDED 1:1 DURING MEALS FOR ASSISTANCE. PER NURSE, PATIENT HAS BEEN MORE ALERT SINCE ADMITTING TO THIS FACILITY AND SHE WAS ABLE TO GET PATIENT TO DRINK A FEW CUPS OF WATER. PATIENT STILL REQUIRES ASSIST DURING MEALS. THERE IS NO SKIN BREAKDOWN OR ANY GI ISSUES NOTED ATT. PATIENT WAS NOT APPROPRIATE FOR INTERVIEW ATT. HE IS ON A REGULAR DIET WITH THIN LIQUIDS PER [facility]NA[facility] RECOMMENDATIONS. PATIENT RECEIVED VANILLA ENSURE TID AT [facility], WILL CONTINUE SUPPLEMENT. Dx: INADEQUATE NUTRIENT INTAKE R/T CURRENT CONDITION, DEPRESSION AEB LOW BMI, WEIGHT LOSS, DEHYDRATION Intervention: REGULAR DIET, SUPPLEMENTATION, MEDS/FLUIDS PER MD [facility] Nutrition Therapy DATE: 10/03/16 Patient: OVIDIO HANSEN JR Physician: BRIANDA Address: [address] [place] [address] [address] Room/Bed: [address] [place] [address], Zip: [place] [address] Admit Date: 10/02/16 Date of : [birth year] Height: 6 1 Weight: 106 48.5 Monitoring, Evaluation and Goals: 1. ADEQUATE PO INTAKES >50-75% OF MEALS 2. PREVENT, CORRECT MICRO/MACRO NUTRIENT DEFICIENCIES 3. WEIGHT; PROMOTE A STEADY WEIGHT GAIN TOWARDS A BMI OF 19-25, PREVENT FURTHER WEIGHT LOSS MONITOR: WEIGHTS, LABS, PO/FLUID INTAKES Recommendations: 1. CONTINUE REGULAR DIET WITH THIN LIQUIDS PER [facility] RECOMMENDATIONS 2. ENCOURAGE ADEQUATE PO AND FLUID INTAKES. PATIENT REQUIRES ASSIST DURING MEALS 3. WEIGH PATIENT Q 3 DAYS TO ENSURE PATIENT RECEIVES ADEQUATE ORAL INTAKE 4. SEND VANILLA ENSURE TID WITH MEALS RD TO F/U PER PROTOCOL AND PRN R/T PATIENT MILD-MODERATELY COMPROMISED Respectfully, MARY BETH CASTRO RD, LD [facility] and [facility] cc: client file
--- NOTE | ~2016-10-02 | HP ---
Unit #: [id number] #: [id number] Patient: OVIDIO HANSEN JR [id number] [facility] [address] [facility]. [place], [place] [address] [id number] I MR#: [id number] NAME: OVIDIO HANSEN JR ROOM: 566 Age: 71 Sex: M Admission Date: 10/02/2016 : 1945 Attending Physician: Eliu Irizarry M.D. Primary Care Physician: Sharonda Cuevas A.P.R.N. HISTORY AND PHYSICAL CHIEF COMPLAINT [facility] recent rigidity generalized body and the neck and incontinent of bladder and bowel. DISCUSSION This is a 71-year-old gentleman who has a past medical history of bipolar, depression, psychosis, catatonia, chronic kidney disease, history of normocytic anemia, hemolytic anemia, hypotension, abdominal aortic aneurysm 5.6 cm, recent UTI. He was admitted recently here in [facility] from September 20 to September 21. At that time, he was found to have acute kidney injury. He was sent to [facility]. [facility]. Today, he was noted that he has a rigidity, noticed generalized body and neck with incontinent of bowel and bladder and suspicious for extrapyramidal symptoms with decreased p.o. intake, lethargic. Patient was sent to the emergency room. On workup, he was found to his sodium 153, BUN 48, creatinine 1.7 and being admitted here. Patient is getting the medication in the ER; Benadryl and Cogentin and Ativan. He is not able to give me any history. He is lethargic, sleepy. Sister is available at bedside who is a nurse and she has given me most of information. PAST MEDICAL HISTORY 1. History of chronic kidney disease, baseline creatinine 1.6. 2. History of bipolar with depression and psychosis. 3. Hypertension. 4. History of catatonia. 5. Abdominal aortic aneurysm, 5.6 cm. 6. History of hemolytic anemia in the past. 7. History of benign adrenal mass. 8. History of recent UTI. 9. Decreased p.o. intake. PAST SURGICAL HISTORY History of tumor removal. SOCIAL HISTORY Patient lives alone. He used to smoke, but he quit one year ago. No history of alcohol or any other drug abuse. FAMILY HISTORY Notable for mother having COPD. MEDICATIONS Current medication from [facility] is following: Unit #: [id number] #: [id number] Patient: OVIDIO HANSEN JR 1. Latuda 20 mg daily. 2. Levaquin 500 mg daily. 3. Ensure one can three times daily. 4. Haloperidol 5 mg at bedtime. 5. Cogentin 0.5 mg at bedtime. 6. Celexa 40 mg daily. 7. Tylenol 650 q.4 hours p.r.n. 8. Milk of Magnesia 30 mL q.6 hours p.r.n. 9. Mirtazapine 45 mg at bedtime. 10. Periactin 4 mg daily. 11. Amlodipine 5 mg daily. 12. Wellbutrin 150 mg daily. 13. Lamictal 25 mg twice a day. REVIEW OF SYSTEMS Twelve review of systems is unobtainable from patient at this time. Patient is sleepy, lethargic. PHYSICAL EXAMINATION VITAL SIGNS: Temperature 98.5, heart rate 73, respiratory rate 16, blood pressure 147/76. GENERAL: He is drowsy and sleepy at this time secondary to medication. HEENT: Pupils equally reactive to light and accommodation. Head is normocephalic and atraumatic. NECK: Supple. No JVD. Trachea midline. HEART: S1, S2. Regular rate and rhythm. LUNGS: Clear to auscultation bilaterally. No rhonchi. No wheezing. ABDOMEN: Soft, nontender, nondistended. Bowel sounds positive. EXTREMITIES: No cyanosis. No clubbing. No edema. NEUROLOGIC: Unable to do neuro exam at this time. DIAGNOSTIC STUDIES LABORATORY: BNP is 58. Urine toxicology positive for opiates. UA is negative. Troponin less than 0.05. Sodium 153, potassium 4, chloride 114, glucose 100, BUN 49, creatinine 1.7. LFTs within normal limits. Lactic acid 1.3. Troponin 0.05. INR 1.1. CBC: White count 10, hemoglobin 11, hematocrit 34, platelets 230,000. IMAGING: Chest x-ray which was normal. CT head was normal. ASSESSMENT AND PLAN 1. Acute on chronic kidney disease: Seems to be creatinine at baseline. 2. Dehydration with hyponatremia, secondary to p.o. intake: Will place the patient on IV fluids D5 half normal saline. 3. Rigidity and extrapyramidal symptoms with incontinent of bowel and bladder. I will hold Haldol and ask psychiatry, Dr. Briggs, to evaluate while patient is in the hospital here. 4. History of bipolar and depression and psychosis. 5. History of catatonia. 6. Chronic kidney disease. 7. History of normocytic hemolytic anemia. 8. Hypertension. 9. History of abdominal aortic aneurysm, 5.6 cm. 10. History of benign adrenal mass. 11. Recent urinary tract infection: Patient is on Levaquin. Repeat urinalysis is negative. Unit #: [id number] #: [id number] Patient: OVIDIO HANSEN JR 12. Poor p.o. intake. 13. Deep venous thrombosis prophylaxis: Will place the patient on (1) Lovenox. Dictated by Jonathan Alarcon TD: 10/03/2016 08:03 JOB #: [id number] HISTORY AND PHYSICAL Page 1 of 1 X X HISTORY AND PHYSICAL
--- NOTE | ~2016-10-02 | US77 ---
[facility] A Service of [facility] RADIOLOGY TEXT RESULTS PATIENT: OVIDIO HANSEN LOCATION: [facility] : 47 UNIT #: [id number] AGE: [address]: Jimmy Bernal MD SEX: M ORDER DR: [id number] [facility] [address] [facility] [address]. [place], [place] [address] [id number] I MR#: [id number] Acc #: [id number] NAME: OVIDIO HANSEN JR : 1945 SEX: M STUDY DATE/TIME: 10/04/2016 9:30 UNIT: [facility] ROOM: [facility] STUDY DESCRIPTION: US Kidney Bilateral Complete Attending Physician: Eliu Irizarry M.D. Ordering Physician: Boston Stokes M.D. Primary Care Physician: Mehul MoralesPThereseRTim MEDICAL IMAGING REPORT This report is preliminary unless electronic signature is present EXAM Renal ultrasound INDICATIONS Chronic kidney disease. BUN 34, creatinine 1.9, GFR 34.9 PROCEDURE Negron-scale and Doppler imaging kidneys and bladder. COMPARISON None. FINDINGS Right kidney measures 7.8 cm and has increased echotexture. Left kidney measures 9.1 cm and has increased echotexture. No hydronephrosis. There is a 3.8-cm cyst in the left kidney. Bladder contains a moderate to moderately large amount of urine, measuring up to 10.7 cm. IMPRESSION 1. Increased parenchymal echotexture both kidneys, suggesting changes of chronic renal disease. 2. No hydronephrosis. 3. Left renal cyst. 4. The bladder is distended with urine. Dictated by... Kel Lopez M.D. THIS IS AN ELECTRONICALLY VERIFIED REPORT Kel Lopez M.D. at 10/06/2016 5:02 PM EED/psc [facility] A Service [facility] RADIOLOGY TEXT RESULTS PATIENT: OVIDIO HANSEN LOCATION: [facility] : 47 UNIT #: [id number] AGE: [address]: Jimmy Bernal MD SEX: M ORDER DR: TD: 10/04/2016 20:33 JOB #: [id number] MEDICAL IMAGING REPORT Page 1 of 1 COPY
--- NOTE | ~2016-10-02 | CO ---
Unit #: [id number] #: [id number] Patient: TOMMY JEONG JR [id number] [address] [place], [place] [address] [id number] MR#: [id number] NAME: TOMMY JEONG JR ROOM: 566 Age: 71 Sex: M Admission Date: 10/02/2016 : 1945 Attending Physician: Jimmy Bernal M.D. Primary Care Physician: Sharonda Cuevas Consultation Date: 10/05/2016 CONSULTATION REPORT REASON FOR CONSULTATION Followup. DISCUSSION Mr. Tommy Jeong is a 71-year-old white male, seen in room 566, bed 1, on 10/05/2016. [facility] The patient making progress, sitting in a propped up position, eating his breakfast by himself. The patient was able to answer questions appropriately. The patient denied any suicidal or homicidal ideation. Denied any psychotic symptoms. Unable to answer questions appropriately. Showing much improvement this morning. The patient's vital signs; temperature 99.2, heart rate 56, respiratory rate 16, blood pressure 138/63, and oxygen saturation 97%. The patient's BMP this morning was sodium 146, chloride 114, BUN 29, and creatinine 1.5. REVIEW OF SYSTEMS Complete review of systems unremarkable. MENTAL STATUS EXAMINATION General appearance; the patient thin built, dressed in hospital attire, sitting comfortably in a propped up position, eating his breakfast, seemed alert and awake, bright affect. Attention span and concentration, fair. Speech, regular rate. Able to answer questions coherently. Oriented in time, place, and person. Mood and affect were brighter. Thought process, goal directed. Thought content, the patient denied any thoughts of harming self or others, but somewhat guarded. Recent and remote memory, fair. Language, intact. Fund of knowledge, fair. Insight and judgment, fair to slightly impaired. DIAGNOSIS Psychiatric: Bipolar mood disorder, recurrent, severe, depressed, F31.9. ASSESSMENT/PLAN 1. Supportive psychotherapy and psychoeducation provided to the patient. 2. Educated about benefits and side effects of medication and course and prognosis of illness. 3. Advised to continue with current medication protocol. If needed, consider further adjustment of medication with a plan to consider rehab placement. family preservation worker is currently working. A referral was sent to [place]. Please feel free to call if any questions, telephone #[phone]. Dictated by... Unit #: [id number] #: [id number] Patient: TOMMY JEONG JR, M.D. SZC/enrike TD: 10/05/2016 16:54 JOB #: [id number] CONSULTATION REPORT Page 1 of 1 X Vasquez Briggs MD X CONSULTATION REPORT
--- NOTE | ~2016-10-02 | CO ---
Unit #: [id number] #: [id number] Patient: TOMMY JEONG JR [id number] [facility] [address] [facility]. [place], [place] [address] [id number] MR#: [id number] NAME: TOMMY JEONG JR ROOM: 566 Age: 71 Sex: M Admission Date: 10/02/2016 : 1945 Attending Physician: Eliu Irizarry M.D. Primary Care Physician: Sharonda Cuevas Consultation Date: 10/04/2016 CONSULTATION REPORT REASON FOR CONSULTATION Followup. DISCUSSION Mr. Tommy Jeong is a 71-year-old white male, seen in room 566, bed 1, on 10/04/2016 at [facility]. The patient was more alert, awake, able to answer questions coherently. The patient made good eye contact, but still withdrawn, isolative, flat affect, sad, dysphoric mood. The patient denied any thoughts of harming self or others. The patient receiving IV fluids. Reports that he was able to eat good. The patient's BNP was 92. The patient's sodium 150, potassium 3.8, chloride 116, BUN 34, and creatinine 1.9. VITAL SIGNS The patient's vital signs; temperature 99.9, heart rate 59, respiratory rate 20, blood pressure 131/61, and oxygen saturation 96%. REVIEW OF SYSTEMS Complete review of systems is unremarkable except as mentioned above. MENTAL STATUS EXAMINATION Vital signs, please see above. General appearance; the patient dressed casually and thin built. Attention span and concentration, fair. Speech, regular rate and slow in volume and rate. Oriented in time, place, and person. Mood and affect; sad, dysphoric, flat. Thought process, coherent. Thought content, the patient denied any thoughts of harming self or others or any hallucination. Recent and remote memory, fair. Language, intact. Fund of knowledge, fair to slightly impaired. Insight and judgment, fair to slightly impaired. DIAGNOSIS Psychiatric: Bipolar mood disorder, recurrent, severe, F31.9. ASSESSMENT/PLAN 1. Supportive psychotherapy and psychoeducation provided to the patient. 2. Educated about benefits and side effects of medication and course and prognosis of illness. 3. Advised to continue with current medication. If needed, consider further adjustment of medication. We will continue to follow. Dictated by... Vasquez Briggs M.D. Unit #: [id number] #: [id number] Patient: TOMMY JEONG JR/enrike TD: 10/04/2016 18:58 JOB #: [id number] CONSULTATION REPORT Page 1 of 1 X Vasquez Briggs MD X CONSULTATION REPORT
--- NOTE | ~2016-10-02 | CO ---
Unit #: [id number] #: [id number] Patient: OVIDIO HANSEN JR [id number] [address] [facility]. [place], [place] [address] [id number] MR#: [id number] NAME: OVIDIO HANSEN ROOM: 566 Age: 71 Sex: M Admission Date: 10/02/2016 : 1945 Attending Physician: Eliu Irizarry M.D. Primary Care Physician: Sharonda Cuevas A.P.R.N. CONSULTATION REPORT REASON FOR CONSULTATION Sent from [facility] because of noted rigidity. HISTORY OF PRESENT ILLNESS The patient was admitted to [facility] in earlier September with some altered mental status. The first admission was on September 20. He was treated with normal saline and chlorthalidone was stopped to address elevated serum creatinine of 2.0 and he did recover to a low of 1.7 with volume expansion with deep breaths. [facility] with depression and psychosis with additional diagnoses of acute kidney injury, better with volume expansion, and chronic kidney disease. He has had poor p.o. food and fluid intake in association with his psychiatric disease and reports a 50 pound weight loss over six months prior to that admission. He was readmitted to [facility] on September 26 because of creatinine back up to 1.9 with evidence of volume depletion and the patient refusing to eat and he was readmitted on 10/02/2016 with current complaint of rigidity of the body and neck. REVIEW OF SYSTEMS He is a poor historian. He denies awareness of any prior kidney disease and admits to decreased p.o. food and fluid intake. He does not elicit any dizziness. E does give history of dry mouth. He is not aware what medicines he takes; he does not admit to using nonsteroidals and none appear on his medication list. He denies dysuria, gross hematuria, red urine, but is not interested in the interview process and declines some answers. He denies suprapubic pain. PAST MEDICAL HISTORY Notable for hypertension, above-noted bipolar disorder, history of psychosis with catatonia, and abdominal aortic aneurysm. He denies family history of renal disease. He denies cigarette smoking (per chart records past history of cigarette smoking). Complete system review is negative except as noted above, but answers are of uncertain validity as he is disinterested and often unresponsive to directed questions. He does specifically deny hemoptysis and shortness of breath, orthopnea, lower extremity swelling, and difficulty emptying his bladder. PHYSICAL EXAMINATION GENERAL: Reveals a disheveled chronically ill-appearing thin male. VITAL SIGNS: Blood pressure 128/63, heart rate 57, respirations 18, and temperature 98.6. HEENT: Conjunctivae and ear pink. Eyes are sunken. There is no epistaxis. Oral mucous membranes are dry. Unit #: [id number] #: [id number] Patient: OVIDIO HANSEN JR NECK: Reveals flat jugular venous pressure. Thyromegaly is not noted. Cervical adenopathy and supraclavicular adenopathy are not noted. Resist examination of the axilla. SKIN: Warm and dry with diminished turgor. HEART: Heart tones reveal normal S1 and S2. There is no S3. There is no pericardial rub. LUNGS: Clear, but diminished. ABDOMEN: Soft, and nontender, without masses. Without organomegaly. EXAM: Includes no cerebrovascular accident tenderness. No bladder distention. EXTREMITIES: Reveal no pitting pretibial edema. DIAGNOSTIC STUDIES LABORATORY RESULTS: Includes a white count of 7300, hemoglobin 11.4, and platelet count of 119,000. Urinalysis shows negative leukocyte esterase, negative nitrite, negative protein, and negative blood. BUN was 40, creatinine 1.7, potassium 4.0, CO2 of 30, sodium 158, and calcium 10.3. ASSESSMENT 1. Chronic kidney disease. This has been present since at least 2009, but worse between 2009 and 2015, and stable since February 2016. There is no evidence of inflammation on urinalysis. There is no record of typical nephrotoxic exposure. Potential etiologies include, hypertensive nephrosclerosis; however, he also has peripheral vascular disease and renal artery stenosis would be a possibility as well. We will first image the kidneys with ultrasound to determine whether or not it would be appropriate to follow with a duplex Doppler of the renal arteries. 2. Hypernatremia. There is no history of polyuria and lithium use, but he is such a poor historian. We will measure 24 hour urine to assure. I suspect this is hypertonic volume contraction secondary to poor p.o. food and fluid intake. We will treat with D5 water with serial reassessments and adjustment of dose rate as indicated. 3. History of peripheral vascular disease with reported abdominal aortic aneurysm. 4. Hypertension. 5. History of psychiatric disease including bipolar, catatonia, psychosis, and prominent depression. PLAN D5 water intravenous. Serial reassessment with laboratories and exam. We will request kidney ultrasound; anticipate possibly following with duplex Doppler. If no issues are detected on a kidney ultrasound will check I and O to assure no polyuria. Thanks for letting me to see the patient. Dictated by... Boston Stokes M.D. REL/modl TD: 10/03/2016 23:24 JOB #: [id number] Unit #: [id number] #: [id number] Patient: OVIDIO HANSEN Dale JR CONSULTATION REPORT Page 1 of 1 X Boston Stokes MD X CONSULTATION REPORT
[2016-10-02] MEDS ORDERED: ENSURE113 GM PO (16:41)
[2016-10-02] MEDS ORDERED: LEVAQUIN PO (16:41)
[2016-10-02] MEDS ORDERED: LATUDA20 MG PO (16:41)
[2016-10-02 17:02] LABS: BASOPHIL% 0.1 % (0-2.5); EOSINOPHIL% 0.4 % (0.0-7.0); HEMATOCRIT 34.4 % (38.0-50.0); HEMOGLOBIN 11.4 gm/dL (13.0-16.0); LYMPHOCYTE# 1.4 X10e3 (1.0-3.5); LYMPHOCYTE% 13.5 % (17.0-45.0); MEAN CORPUSCULAR HEMOGLOBIN 28.2 PG (28-34); MEAN CORPUSCULAR HGB CONC 33.2 g/dL (30-36); MONOCYTE# 0.6 X10e3 (0-1.0); MONOCYTE% 5.6 % (3.0-12.0); NEUTROPHIL# 8.6 X10e3 (1.5-7.1); NEUTROPHIL% 80.4 % (40-75); PLATELET COUNT 230 X10e3 (140-420); RED BLOOD COUNT 4.04 X10e (3.90-5.60); RED CELL DISTRIBUTION WIDTH 15.7 % (11.0-15.5); WHITE BLOOD COUNT 10.7 X10e3 (4.0-10.5)
[2016-10-02 17:09] LABS: DIFF IND NO
[2016-10-02 17:16] LABS: INR 1.1; PARTIAL THROMBOPLASTIN TIME 23.8 SECONDS (23.5-31.3); PROTHROMBIN TIME (PATIENT) 12.1 SECONDS (10.0-11.7)
[2016-10-02 17:20] LABS: POC - CKMB 2.6 ng/mL (0.0-7.9); POC - TROPONIN <0.05 ng/mL (<=0.05)
[2016-10-02 17:34] LABS: ALBUMIN SERUM 3.6 g/dL (3.5-5.0); ALCOHOL BLOOD <5 mg/dL (0); ALKALINE PHOSPHATASE 88 U/L (32-92); ALT (SGPT) 29 U/L (10-40); AST (SGOT) 29 U/L (10-42); BILIRUBIN, DIRECT 0.1 mg/dL (0.0-0.2); BILIRUBIN,INDIRECT 0.7 mg/dL (0.0-0.9); BILIRUBIN,TOTAL 0.8 mg/dL (0.2-2.0); BLOOD UREA NITROGEN 49 mg/dL (9-23); BUN/CREATININE RATIO 28.82; CALCIUM SERUM 10.6 mg/dL (8.4-10.2); CARBON DIOXIDE 30 mmol/L (22-31); CHLORIDE 114 mmol/L (100-111); CPK (CREATINE PHOSPHOKINASE) 270 IU/L (36-174); CREATININE SERUM 1.7 mg/dL (0.6-1.4); GLUCOSE FASTING 100 mg/dL (70-110); PROTEIN TOTAL SERUM 6.9 g/dL (6.0-8.3); SODIUM 153 mmol/L (135-145)
[2016-10-02 18:44] LABS: POC - CKMB 1.1 ng/mL (0.0-7.9); POC - TROPONIN <0.05 ng/mL (<=0.05)
[2016-10-02 18:48] LABS: URINE SOURCE CLEAN CATCH
[2016-10-02 18:55] LABS: URINE APPEARANCE CLEAR; URINE BILIRUBIN NEG (NEG); URINE BLOOD NEG (NEG); URINE COLOR YELLOW; URINE GLUCOSE NEG (NEG); URINE KETONE NEG (NEG); URINE LEUKOCYTE ESTERASE NEG (NEG); URINE NITRATE NEG (NEG); URINE PROTEIN NEG (NEG); URINE SPECIFIC GRAVITY 1.011 (1.003-1.035); URINE UROBILINOGEN 0.2 MG/DL (NEG)
[2016-10-02 19:00] LABS: CULTURE INDICATED? NO
[2016-10-02 19:04] LABS: AMPHETAMINE NEG (NEG); BARBITURATES NEG (NEG); BENZODIAZEPINES NEG (NEG); COCAINE NEG (NEG); MARIJUANA NEG (NEG); OPIATES POS (NEG); TRICYCLIC ANTIDEPRESSANTS NEG (NEG); U METHADONE NEG (NEG)
[2016-10-03 06:22] LABS: BASOPHIL% 0.4 % (0-2.5); DIFF IND NO; EOSINOPHIL% 0.4 % (0.0-7.0); HEMATOCRIT 34.8 % (38.0-50.0); HEMOGLOBIN 11.4 gm/dL (13.0-16.0); LYMPHOCYTE# 0.9 X10e3 (1.0-3.5); LYMPHOCYTE% 12.9 % (17.0-45.0); MEAN CELL VOLUME 85.7 FL (83-96); MEAN CORPUSCULAR HEMOGLOBIN 27.9 PG (28-34); MEAN CORPUSCULAR HGB CONC 32.6 g/dL (30-36); MEAN PLATELET VOLUME 9.2 FL (6.5-11.5); MONOCYTE# 0.3 X10e3 (0-1.0); NEUTROPHIL% 82.3 % (40-75); PLATELET COUNT 219 X10e3 (140-420); RED BLOOD COUNT 4.07 X10e (3.90-5.60); WHITE BLOOD COUNT 7.3 X10e3 (4.0-10.5)
[2016-10-03 06:53] LABS: BUN/CREATININE RATIO 23.52; CALCIUM SERUM 10.3 mg/dL (8.4-10.2); CREATININE SERUM 1.7 mg/dL (0.6-1.4)
[2016-10-03 21:08] LABS: CALCIUM SERUM 9.5 mg/dL (8.4-10.2); CREATININE SERUM 1.6 mg/dL (0.6-1.4); POTASSIUM 3.8 mmol/L (3.5-5.1)
[2016-10-04 07:53] LABS: BUN/CREATININE RATIO 17.89; CALCIUM SERUM 9.7 mg/dL (8.4-10.2); CREATININE SERUM 1.9 mg/dL (0.6-1.4); GLOM FILT RATE Estimated 34.9 mL/min (>60); POTASSIUM 3.8 mmol/L (3.5-5.1)
[2016-10-05 06:40] LABS: HEMOGLOBIN 10.1 gm/dL (13.0-16.0); MEAN CELL VOLUME 84.6 FL (83-96); MEAN CORPUSCULAR HEMOGLOBIN 28.5 PG (28-34); MEAN CORPUSCULAR HGB CONC 33.7 g/dL (30-36); MEAN PLATELET VOLUME 9.5 FL (6.5-11.5); RED BLOOD COUNT 3.54 X10e (3.90-5.60); RED CELL DISTRIBUTION WIDTH 15.1 % (11.0-15.5); WHITE BLOOD COUNT 8.8 X10e3 (4.0-10.5)
[2016-10-05 07:15] LABS: BUN/CREATININE RATIO 19.33; CALCIUM SERUM 9.5 mg/dL (8.4-10.2); CREATININE SERUM 1.5 mg/dL (0.6-1.4); GLOM FILT RATE Estimated 46.5 mL/min (>60); POTASSIUM 3.6 mmol/L (3.5-5.1)
[2016-10-06 06:58] LABS: BUN/CREATININE RATIO 21.25; CALCIUM SERUM 9.3 mg/dL (8.4-10.2); CREATININE SERUM 1.6 mg/dL (0.6-1.4); POTASSIUM 3.8 mmol/L (3.5-5.1)
[2016-10-07 06:35] LABS: HEMATOCRIT 32.8 % (38.0-50.0); HEMOGLOBIN 10.9 gm/dL (13.0-16.0); MEAN CELL VOLUME 85.1 FL (83-96); MEAN CORPUSCULAR HEMOGLOBIN 28.2 PG (28-34); MEAN CORPUSCULAR HGB CONC 33.1 g/dL (30-36); MEAN PLATELET VOLUME 9.6 FL (6.5-11.5); RED BLOOD COUNT 3.85 X10e (3.90-5.60); WHITE BLOOD COUNT 9.6 X10e3 (4.0-10.5)
[2016-10-07 07:04] LABS: BUN/CREATININE RATIO 23.57; CALCIUM SERUM 9.6 mg/dL (8.4-10.2); CREATININE SERUM 1.4 mg/dL (0.6-1.4); GLOM FILT RATE Estimated 50.6 mL/min (>60); POTASSIUM 4.1 mmol/L (3.5-5.1)
[2016-10-08 05:19] LABS: BASOPHIL% 0.4 % (0-2.5); EOSINOPHIL# 0.3 X10e3 (0-0.7); EOSINOPHIL% 4.1 % (0.0-7.0); HEMOGLOBIN 9.8 gm/dL (13.0-16.0); LYMPHOCYTE% 12.2 % (17.0-45.0); MEAN CELL VOLUME 84.8 FL (83-96); MEAN CORPUSCULAR HEMOGLOBIN 28.7 PG (28-34); MEAN CORPUSCULAR HGB CONC 33.9 g/dL (30-36); MEAN PLATELET VOLUME 9.4 FL (6.5-11.5); MONOCYTE# 0.5 X10e3 (0-1.0); MONOCYTE% 6.1 % (3.0-12.0); NEUTROPHIL# 6.4 X10e3 (1.5-7.1); NEUTROPHIL% 77.2 % (40-75); PLATELET COUNT 167 X10e3 (140-420); RED BLOOD COUNT 3.42 X10e (3.90-5.60); RED CELL DISTRIBUTION WIDTH 16.1 % (11.0-15.5); WHITE BLOOD COUNT 8.3 X10e3 (4.0-10.5)
[2016-10-08 05:34] LABS: DIFF IND NO
[2016-10-08 05:47] LABS: CALCIUM SERUM 9.3 mg/dL (8.4-10.2); CREATININE SERUM 1.5 mg/dL (0.6-1.4); GLOM FILT RATE Estimated 46.5 mL/min (>60); POTASSIUM 3.8 mmol/L (3.5-5.1)
[2016-10-09 07:25] LABS: HEMATOCRIT 29.9 % (38.0-50.0); MEAN CELL VOLUME 84.4 FL (83-96); MEAN CORPUSCULAR HEMOGLOBIN 28.2 PG (28-34); MEAN CORPUSCULAR HGB CONC 33.4 g/dL (30-36); MEAN PLATELET VOLUME 9.2 FL (6.5-11.5); RED BLOOD COUNT 3.54 X10e (3.90-5.60); RED CELL DISTRIBUTION WIDTH 16.4 % (11.0-15.5); WHITE BLOOD COUNT 9.3 X10e3 (4.0-10.5)
[2016-10-09 08:11] LABS: BUN/CREATININE RATIO 15.38; CALCIUM SERUM 9.6 mg/dL (8.4-10.2); CREATININE SERUM 1.3 mg/dL (0.6-1.4); GLOM FILT RATE Estimated 55.3 mL/min (>60)
[2016-10-10 05:15] LABS: HEMATOCRIT 29.6 % (38.0-50.0); MEAN CELL VOLUME 85.2 FL (83-96); MEAN CORPUSCULAR HEMOGLOBIN 28.7 PG (28-34); MEAN CORPUSCULAR HGB CONC 33.7 g/dL (30-36); MEAN PLATELET VOLUME 9.3 FL (6.5-11.5); RED BLOOD COUNT 3.48 X10e (3.90-5.60); RED CELL DISTRIBUTION WIDTH 16.1 % (11.0-15.5); WHITE BLOOD COUNT 7.5 X10e3 (4.0-10.5)
[2016-10-10 06:31] LABS: BUN/CREATININE RATIO 11.25; CALCIUM SERUM 9.6 mg/dL (8.4-10.2); CREATININE SERUM 1.6 mg/dL (0.6-1.4); POTASSIUM 3.6 mmol/L (3.5-5.1)
== END 2016-10-10 23:33 | DRG 981 ==
LOC: CED 15:58 → CEDOF 20:40 → C5C 20:40 → CED 20:55 → CEDOF 20:55 → C5C 21:36 → CEDOF 21:36 → C5C 21:36
PROVIDERS: Emergency Medicine; Family Medicine; Internal Medicine; Internal Medicine Gastroenterology; Internal Medicine Nephrology; Orthopaedic Surgery
PROC: 0QS634Z Reposition Right Upper Femur with Internal Fixation Device, Percutaneous Approach (ICD-10-PCS; 2016-10-08)
PROC: 0DB68ZX Excision of Stomach, Via Natural or Artificial Opening Endoscopic, Diagnostic (ICD-10-PCS; principal; 2016-10-09 16:29)
DX: N17.9 Acute kidney failure, unspecified (principal); J69.0 Pneumonitis due to inhalation of food and vomit; E87.0 Hyperosmolality and hypernatremia; S72.011A Unspecified intracapsular fracture of right femur, initial encounter for closed fracture; E87.1 Hypo-osmolality and hyponatremia; K22.10 Ulcer of esophagus without bleeding; F31.5 Bipolar disorder, current episode depressed, severe, with psychotic features; N39.0 Urinary tract infection, site not specified; R63.0 Anorexia; I12.9 Hypertensive chronic kidney disease with stage 1 through stage 4 chronic kidney disease, or unspecified chronic kidney disease; N18.3 Chronic kidney disease, stage 3 (moderate); Z87.891 Personal history of nicotine dependence; Z88.2 Allergy status to sulfonamides; E86.0 Dehydration; R63.4 Abnormal weight loss; R62.7 Adult failure to thrive; I71.4 Abdominal aortic aneurysm, without rupture; D64.9 Anemia, unspecified; W06.XXXA Fall from bed, initial encounter; Y93.9 Activity, unspecified; Y92.230 Patient room in hospital as the place of occurrence of the external cause; K29.50 Unspecified chronic gastritis without bleeding
CPT/HCPCS: 36415; 51701; 70450; 71010; 71250; 73502; 74176; 74183; 74230; 76000; 76770; 80048; 80076; 80307; 81003; 82550; 82553; 83605; 83880; 83935; 84484; 85025; 85027; 85610; 85730; 87077; 92526; 92610; 92611; 93005; 93975; 96361; 96374; 96375; 97110; 97116; 97162; 97163; 97167; 97530; 97535; 99285; A9577; C1713; G0480; G8978-GP; G8979-GP; G8987-GO; G8988-GO; G8996-GN; G8997-GN; G8998-GN; J0515; J1200; J1650; J2060; J2543; J2765; J3010